=== PATIENT | female | born 1970 | race Caucasian/White ===

== ENCOUNTER → 2018-02-05 15:23 | Outpatient (CLI) | payer BC, SELFPAY ==
[2018-02-05 18:14] LABS: Absolute Lymphocyte Count 2.01 X10^3/ul (0.83-4.51); Absolute Neutrophil Count 6.8 X10^3/uL (2.0-7.7); Basophil# 0.05 X10^3/uL; Basophil% 0.5 % (0-1); Eosinophil# 0.39 X10^3/uL; Hematocrit 38.3 % (37-47); Hemoglobin 12.1 g/dl (12.0-15.0); Lymphocyte # 2.01 X10^3/ul (4.0); Lymphocyte % 20.6 % (19-41); Mean Corp Hgb Conc 31.6 g/gl (32-36); Mean Corpuscular Hgb 29.7 pg (27.0-32.0); Mean Corpuscular Volume 93.9 fL (81-99); Mean Platelet Vol. 10.5 fl (6.2-12.0); Monocyte% 5.1 % (0-10); Neutrophil % 69.7 % (47-70); Platelet Count 337 K/mm3 (150-450); RBC Distribution Width CV 14.6 % (11.6-14.6); RBC Distribution Width SD 49.2 fl (35.1-43.9); Red Blood Count 4.08 M/mm3 (4.2-5.4); White Blood Count 9.8 K/mm3 (4.4-11.0)
[2018-02-05 18:20] LABS: POSITIVE COUNT NO; POSITIVE DIFFERENTIAL NO; POSITIVE MORPHOLOGY NO
[2018-02-05 19:57] LABS: ALB/GLOB Ratio 1.1 RATIO (0.9-2.4); AST(SGOT) 34 U/L (15-37); Alanine Aminotransfer ALT/SGPT 74 U/L (13-56); Albumin, Serum 3.8 g/dL (3.2-5.0); Alkaline Phosphatase 96 U/L (45-117); Anion Gap 10 (5-15); BUN 13 mg/dL (7-18); BUN/Creat Ratio 16.4 RATIO (10-20); Calcium,Total 8.7 mg/dL (8.5-10.1); Chloride 106 mmol/L (98-107); Creatinine, Serum 0.79 mg/dL (0.55-1.02); EST Glomerular Filtration Rate 83 mL/min (>60); Est Glom Filt Rate - Afr Amer 100 mL/min (>60); Globulin 3.4 g/dL (2.2-4.2); Glucose 67 mg/dL (74-106); Potassium 3.6 mmol/L (3.5-5.1); Protein, Total 7.2 g/dL (6.4-8.2); Sodium Level 143 mmol/L (136-145)
== END ==
PROVIDERS: PCP Nurse Practitioner Adult Health; Visit Provider Internal Medicine Rheumatology
DX: L40.59 Other psoriatic arthropathy (principal); Z79.899 Other long term (current) drug therapy; L40.8 Other psoriasis; Q66.7 Congenital pes cavus
CPT/HCPCS: 36415; 80053; 85025

== ENCOUNTER → 2018-03-02 10:59 | Outpatient (CLI) | payer BC, SELFPAY ==
--- NOTE | 2018-03-02 11:15 | RAD_ITS ---
STUDY: X-RAY - PELVIS AND LEFT HIP REASON FOR EXAM: Female, 47 years old. Left hip pain. TECHNIQUE: Radiological exam, hip, unilateral, with pelvis when performed; 2 or 3 views. COMPARISON: None. FINDINGS: There is a non-specific bowel gas pattern. Normal visualized soft tissue structures. Normal bilateral iliac wings, sacroiliac joints and visualized sacrum. Normal bilateral superior and inferior pubic rami. There are degenerative changes of the pubic symphysis with articular narrowing and sclerosis. Normal bilateral ischial tuberosities. There are osteoarthritic changes of the left femoral head with marginal osteophyte formation. Normal left acetabulum. There is moderate articular joint space narrowing of the left hip. RAD/Hip 2-3 Views with Pelvis IMPRESSION: Degenerative changes of the left hip. Electronically Signed: Thuan Mejia DO at 11:36 EDT Tel [phone], Service support ,
== END ==
LOC: LAB 11:02 → RAD 11:11
PROVIDERS: PCP Nurse Practitioner Adult Health; Visit Provider Internal Medicine Rheumatology
DX: L40.59 Other psoriatic arthropathy (principal); Z79.899 Other long term (current) drug therapy
CPT/HCPCS: 73502

== ENCOUNTER → 2018-03-06 08:00 | Outpatient (CLI) | payer BC, SELFPAY ==
--- NOTE | 2018-03-06 08:02 | US_ITS ---
STUDY: ABDOMINAL ULTRASOUND - RIGHT UPPER QUADRANT REASON FOR VISIT: Female, 47 years old. Elevated liver enzymes. TECHNIQUE: Ultrasound evaluation of the right upper quadrant was performed with real-time and static cary-scale imaging. TECHNICAL QUALITY: Adequate. COMPARISON: None. FINDINGS: Liver: The liver measures 15.6 cm. There is increased echogenicity consistent with mild degree of fatty infiltration. The bile ducts are within normal limits. There is hepatic color flow. The direction of portal flow is hepatopetal. There is no demonstrated mass lesion. Gallbladder: Normal distended gallbladder. The gallbladder wall measures 2.3 mm. There is a negative sonographic Webster's sign. There is no pericholecystic fluid. There are no gallstones. Common Bile Duct (C.B.D.): The common bile duct measures 3.6 mm. Pancreas: Normal size of the head, body and tail of the pancreas. There is normal echogenicity of the pancreas. There is no demonstrated pancreatic mass or cyst. Right Kidney: Normal size of the right kidney. The right kidney measures 11.0 cm x 5.0 cm x 4.2 cm. Normal renal cortex. The right cortex measures 1.1 cm. There is no demonstrated renal mass or cyst. There is no right hydronephrosis. US/Liver IMPRESSION: Mild degree of fatty infiltration of the liver. Electronically Signed: José Antonio Pradhan MD at 13:19 EDT Tel [phone], Service support ,
== END ==
LOC: OPUS 08:01
PROVIDERS: PCP Nurse Practitioner Adult Health; Visit Provider Internal Medicine Rheumatology
DX: R74.8 Abnormal levels of other serum enzymes (principal); L40.59 Other psoriatic arthropathy; Z79.899 Other long term (current) drug therapy
CPT/HCPCS: 76705

== ENCOUNTER → 2018-04-01 07:56 | Outpatient (CLI) | payer BC, SELFPAY ==
--- NOTE | 2018-04-01 07:56 | DT_ITS ---
This patient was seen during an EMR downtime April 01, 2018 - April 08, 2018. This patient may have a combination of paper and electronic documentation or all paper documentation. All documentation is viewable within the e-chart portion of [facility] for each patient visit.
[2018-04-05 22:15] LABS: Hematocrit 50.2 % (37-47); Hemoglobin 16.6 g/dl (12.0-15.0); Mean Corpuscular Volume 91.4 fL (81-99); Red Blood Count 5.49 M/mm3 (4.2-5.4); White Blood Count 8.7 K/mm3 (4.4-11.0)
[2018-04-05 22:18] LABS: Mean Corpuscular Hgb 30.2 pg (27.0-32.0)
[2018-04-05 22:19] LABS: Basophil% 0.7 % (0-1); Eosinophils% 3.2 % (0-5); Lymphocyte % 22.4 % (19-41); Mean Corp Hgb Conc 33.1 g/gl (32-36); Mean Platelet Vol. 10.9 fl (6.2-12.0); Monocyte% 3.7 % (0-10); Neutrophil % 69.5 % (47-70); POSITIVE COUNT NO; POSITIVE DIFFERENTIAL NO; POSITIVE MORPHOLOGY NO; Platelet Count 261 K/mm3 (150-450); RBC Distribution Width CV 13.9 % (11.6-14.6); RBC Distribution Width SD 45.7 fl (35.1-43.9)
[2018-04-05 22:20] LABS: Absolute Lymphocyte Count 1.95 X10^3/ul (0.83-4.51); Absolute Neutrophil Count 6.1 X10^3/uL (2.0-7.7); Basophil# 0.06 X10^3/uL; Eosinophil# 0.28 X10^3/uL; Lymphocyte # 1.95 X10^3/ul (4.0); Monocyte# 0.32 X10^3/uL; Neutrophil # 6.05 X10^3/uL (2.7-7.7)
[2018-04-05 22:30] LABS: ALB/GLOB Ratio 1.1 RATIO (0.9-2.4); AST(SGOT) 19 U/L (15-37); Alanine Aminotransfer ALT/SGPT 31 U/L (13-56); Alkaline Phosphatase 109 U/L (45-117); Anion Gap 10 (5-15); BUN 14 mg/dL (7-18); BUN/Creat Ratio 16.3 RATIO (10-20); Calcium,Total 9.2 mg/dL (8.5-10.1); Chloride 106 mmol/L (98-107); Creatinine, Serum 0.86 mg/dL (0.55-1.02); EST Glomerular Filtration Rate 76 mL/min (>60); Est Glom Filt Rate - Afr Amer 92 mL/min (>60); Globulin 3.8 g/dL (2.2-4.2); Glucose 98 mg/dL (74-106); Potassium 4.4 mmol/L (3.5-5.1); Protein, Total 7.8 g/dL (6.4-8.2); Sodium Level 142 mmol/L (136-145)
== END ==
PROVIDERS: PCP Nurse Practitioner Adult Health; Visit Provider Internal Medicine Rheumatology
DX: L40.59 Other psoriatic arthropathy (principal); Z79.899 Other long term (current) drug therapy; L40.8 Other psoriasis; Q66.7 Congenital pes cavus
CPT/HCPCS: 36415; 80053; 85025

== ENCOUNTER 2018-06-19 08:26 | Inpatient (IN) | payer BC, SELFPAY ==
[2018-06-07 12:48] VITALS: BP 138/87; PULSE 85; RESP 16; TEMP 37; O2SAT 97; BMI 32.8
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
[2018-06-07 13:26] LABS: Absolute Neutrophil Count 5.8 X10^3/uL (2.0-7.7); Basophil# 0.05 X10^3/uL; Basophil% 0.6 % (0-1); Eosinophil# 0.23 X10^3/uL; Eosinophils% 2.7 % (0-5); Hematocrit 39.6 % (37-47); Hemoglobin 12.8 g/dl (12.0-15.0); Lymphocyte % 25.4 % (19-41); Mean Corp Hgb Conc 32.3 g/gl (32-36); Mean Corpuscular Hgb 28.9 pg (27.0-32.0); Mean Corpuscular Volume 89.4 fL (81-99); Mean Platelet Vol. 10.2 fl (6.2-12.0); Monocyte# 0.42 X10^3/uL; Monocyte% 4.8 % (0-10); Neutrophil # 5.76 X10^3/uL (2.7-7.7); Neutrophil % 66.4 % (47-70); POSITIVE COUNT NO; POSITIVE DIFFERENTIAL NO; POSITIVE MORPHOLOGY NO; Platelet Count 293 K/mm3 (150-450); RBC Distribution Width CV 13.9 % (11.6-14.6); RBC Distribution Width SD 45.4 fl (35.1-43.9); Red Blood Count 4.43 M/mm3 (4.2-5.4); White Blood Count 8.7 K/mm3 (4.4-11.0)
[2018-06-07 13:52] LABS: Anion Gap 9 (5-15); BUN 12 mg/dL (7-18); BUN/Creat Ratio 13.2 RATIO (10-20); Calcium,Total 8.9 mg/dL (8.5-10.1); Chloride 106 mmol/L (98-107); Creatinine, Serum 0.91 mg/dL (0.55-1.02); EST Glomerular Filtration Rate 71 mL/min (>60); Est Glom Filt Rate - Afr Amer 86 mL/min (>60); Estimated Creatinine Clearance 71.55 ml/min; Glucose 133 mg/dL (74-106); Potassium 3.6 mmol/L (3.5-5.1); Sodium Level 140 mmol/L (136-145)
--- NOTE | 2018-06-12 12:19 | CASEMGMT ---
This CONTACT CENTRE SUPERVISOR called and spoke with pt regarding discharge needs after upcoming surgery. Pt reports that she lives in a mobile home that has approx. 5 steps to get inside. Bedroom and bathroom are on first level of mobile home. Son will be able to assist pt at home, pt's father will assist with transportation needs to/from outpatient therapy at [facility]. Pt states that she will likely have a need for a toilet riser and shower seat but does have a walker.
[2018-06-19] VITALS (15 sets, daily range): BP systolic 105–139; BP diastolic 62–89; PULSE 56–100; RESP 14–18; TEMP 36.6–37.3; O2SAT 94–100; BMI 32.5
--- NOTE | 2018-06-19 07:00 | PCM.OPRPT ---
Report of Operation Date of Procedure: 06/19/18 Pre-Operative Diagnosis: Left hip osteoarthritis Post-Operative Diagnosis: Left hip osteoarthritis Surgery/Procedure Performed:: Left direct anterior total hip replacement Description of Surgical Findings:: Stable hip with equal leg length machine setup operator: Noel Pham Type of Anesthesia:: Spinal Anesthesiologist: Emil Mascorro Special Medications: 2 g Ancef, 1 g TXA at incision, 1 g TXA closure, 10 mg Decadron, joint cocktail (5 mg Duramorph, 30 mL of 0.5% Ropivicaine, 1000 units of epinephrine, 30 mg of Toradol) Specimen's removed: Bony cuts Estimated Blood Loss (mL): 200 Fluids Replaced: 1500 mL crystalloid Description of Procedure: Components used: 1. Accolade 2 Gulf Breeze femoral stem size 3 127? 2. Kip trident acetabular shell size 48 mm 3. Gulf Breeze X3 polyethylene D 4. Kip Biolox delta 32mm, -4mm femoral head Brief history operative indications: 48 yo F who failed conservative measures for their hip osteoarthritis. X-rays were consistent with osteoarthritis including joint space narrowing, osteophyte formation and subchondral cysts. Total hip replacement was discussed with the patient with risks and benefits including but not limited to blood loss, DVTs, PEs, neurovascular damage, dislocation, general risks of anesthesia including loss of life. Patient demonstrated an understanding medical clearance is obtained the patient was consented for surgery. Procedure: On the date of procedure the patient's L hip was marked in the preoperative area. Patient was then taken back to the operating room where anesthesia assumed control of the C-spine and airway and administered anesthetic. Patient was transferred to the operating table and placed in the supine position. The hips were placed at the break of the bed and a sacral bump was placed. The L lower extremity was then prepped out in a sterile fashion using chlorhexidine while the surgeon scrubbed. The PA was vital in the positioning of the patient. Upon reentering the room the L lower extremity was draped in the standard orthopedic fashion and the incision was marked. A timeout was called and everyone agreed upon the side, the site, the procedure be performed, antibody given, and patient's identity. At this time incision was made through skin, subcutaneous tissue, and fat down to fascia. The fascia was then incised and the TFL was retracted laterally. A retractor was placed on the lateral border of the femoral neck. Attention was directed to the inferior portion of the approach and all crossing vessels were identified and appropriately coagulated. A retractor was then placed on the medial portion of the femoral neck. The anterior capsule was then cleared of all soft tissue and then H shaped capsulotomy was made. The retractors were then placed inside the capsule. The femoral neck was identified and a cleanup cut was made. At this time a power corkscrew was used to remove the femoral head. Attention was then turned toward the acetabulum where the soft tissues were appropriately retracted and the acetabulum was sequentially reamed to 47 mm. A 48 mm cup was then selected and impacted into place. Acetabular liner was impacted into place and locking mechanism was verified. The position of the acetabular cup was then verified under live fluoroscopy. Attention was then turned to the femur. Soft tissue releases on the medial and lateral femoral neck were appropriately done, the leg was externally rotated and lateralized. A Mac retractor was placed medially and proximally to the greater trochanter this allowed appropriate visualization and exposure of the femoral canal. Rongeour was then used to remove excess lateral bone. A canal finder and entry broach were used to open the proximal canal. Once we verified we were down the femoral canal we subsequently broached up to a size 3 femur. The appropriate neck was placed in the previously selected head was trialed with a -4 mm neck. Traction was pulled and the hip was reduced with internal rotation. Once it was appropriately reduced and stability was checked. There was minimal shuck, equal leg lengths and appropriate stability with hyperextension and external rotation as well as with 90? flexion and internal rotation. Fluoroscopy was then also used to verify the position of the components and leg lengths using the contralateral side for comparison. The trial components were then dislocated the proximal femur was again exposed and the components were removed from the wound. The final components were verified and opened. The wound was copiously irrigated out with normal saline. The acetabulum was checked for any residual debris. The final components were placed and impacted. Traction and internal rotation were again used to reduce the hip. After adequate reduction the hip remained stable with appropriate leg lengths. The final components were once again checked with live fluoroscopy and were found to be satisfactory. The wound was then copiously irrigated with normal saline once more, and hemostasis was obtained. Closure was then done using #1 Vicryl runner to close the fascia. A 2-0 vicryl interuppted sutures were used to close the subcutaneous skin. A 3-0 Monocryl and Steri-Strips were used for final skin closure. A Silverlon dressing was placed. Patient was awakened by anesthesia and transferred to the [facility]. Patient was then transferred to the PACU for recovery. Postoperative plan: Patient will get 24 hours postop antibiotics. Patient will get in-house physical therapy and will be weight-bear as tolerated. Patient will follow up in office in 2 weeks for a wound check and x-rays. During the course of the procedure the physician library media assistant played a vital role. His intimate knowledge of my steps in the procedure aided in safe and expedient completion of the procedure. The PA played a vital rolls in positioning particularly in obtaining the appropriate positioning of the sacral bump. The PA was also vital in the retraction of soft tissues during the exposure and especially the femoral work as this is a vital part of the procedure to prevent complications and fractures. The PA was also vital and protecting soft tissues during times of bony cuts and reaming. He also played a vital role in closure with my direct supervision. The PA was also important during reduction and dislocation of the joint and trials intraoperatively. Grafts/Implants Used: Gulf Breeze - Complications None - Admit VTE Documentation VTE Present on Admission: No VTE Mechan Device Prophylaxis: SCD's, Thigh High MATTHEW Hose VTE Pharm Prophylaxis ordered?: Yes
[2018-06-19 09:01] LABS: Internal QC Validated? YES +Cl - CLEAR BKGD; Pregnancy, Urine Negative Negative
[2018-06-19] MEDS: Celecoxib 200 MG Capsule 400 MG PO (09:18)
[2018-06-19] MEDS: oxyCODONE HCl Cr 10 MG Tablet PO (09:18)
[2018-06-19] MEDS: Acetaminophen 500 MG Tablet 1000 MG PO ×3 (09:18→21:06)
[2018-06-19] MEDS: Lactated Ringers 1,000 ML 125 ML IV ×2 (09:40→17:20)
[2018-06-19] MEDS: Lactated Ringers 1,000 ML 999 ML IV (09:42)
[2018-06-19] MEDS: Cefazolin 2 GM in 0.9% Normal Saline 100 ML IV (10:02)
[2018-06-19] MEDS: Scopolamine 1mg/72hr Patch 1 PATCH TD (12:30)
[2018-06-19] MEDS: Famotidine 20 MG Tablet PO (17:22)
[2018-06-19] MEDS: Aspirin E.C. 81 MG Tablet PO (17:22)
[2018-06-19] MEDS: Folic Acid 1 MG Tablet 2 MG PO (17:22)
[2018-06-19] MEDS: Cefazolin 1 GM/50 ML BAG IV (17:25)
[2018-06-19] MEDS: Ketorolac 15 MG/ML Vial IV (18:13)
[2018-06-19] MEDS: Senna/Docusate Sodium 1 Tablet 2 TABLET PO (21:06)
[2018-06-20] MEDS: Cefazolin 1 GM/50 ML BAG IV (01:09)
[2018-06-20 02:15] VITALS: BP 104/69; PULSE 52; RESP 17; TEMP 36.8; O2SAT 98
[2018-06-20] MEDS: Acetaminophen 500 MG Tablet 1000 MG PO ×2 (06:09→14:54)
[2018-06-20 06:53] LABS: Hemoglobin 11.1 g/dl (12.0-15.0); Mean Corp Hgb Conc 32.6 g/gl (32-36); Mean Corpuscular Hgb 29.1 pg (27.0-32.0); Mean Corpuscular Volume 89.2 fL (81-99); Mean Platelet Vol. 10.9 fl (6.2-12.0); Platelet Count 235 K/mm3 (150-450); RBC Distribution Width CV 13.6 % (11.6-14.6); RBC Distribution Width SD 42.7 fl (35.1-43.9); Red Blood Count 3.81 M/mm3 (4.2-5.4); White Blood Count 18.4 K/mm3 (4.4-11.0)
[2018-06-20 07:01] LABS: Scan Indicated on CBC? Y/N NO
[2018-06-20 07:02] LABS: Anion Gap 12 (5-15); BUN 12 mg/dL (7-18); BUN/Creat Ratio 15.6 RATIO (10-20); Calcium,Total 8.5 mg/dL (8.5-10.1); Chloride 111 mmol/L (98-107); Creatinine, Serum 0.77 mg/dL (0.55-1.02); EST Glomerular Filtration Rate 86 mL/min (>60); Est Glom Filt Rate - Afr Amer 104 mL/min (>60); Estimated Creatinine Clearance 84.55 ml/min; Glucose 110 mg/dL (74-106); Potassium 4.2 mmol/L (3.5-5.1); Sodium Level 145 mmol/L (136-145)
[2018-06-20 08:14] VITALS: BP 119/71; PULSE 58; RESP 16; TEMP 36.6; O2SAT 97
[2018-06-20] MEDS: 0.9% NaCl Peripheral Flush Adult/Peds IV (08:15)
[2018-06-20] MEDS: Ketorolac 15 MG/ML Vial IV (08:16)
[2018-06-20] MEDS: Aspirin E.C. 81 MG Tablet PO (08:16)
[2018-06-20] MEDS: Senna/Docusate Sodium 1 Tablet 2 TABLET PO (08:16)
[2018-06-20] MEDS: Famotidine 20 MG Tablet PO (08:16)
[2018-06-20] MEDS: Folic Acid 1 MG Tablet 2 MG PO (08:16)
--- NOTE | 2018-06-20 09:51 | PCM.PN.ORT ---
Subjective: The patient was sitting in bedside chair upon examination. Patient denies any chest pain, shortness of breath, dizziness, lightheadedness, nausea or vomiting, or calf pain. Pain is controlled on medications. No adverse overnight events. Patient is doing well and has tolerated physical therapy. Pain is been controlled on medications. Patient wishes to go home today. Objective: Vital signs stable and afebrile. Patient is able to plantarflex and dorsiflex actively. Sensation is intact to light touch to saphenous, sural, superficial and deep peroneal, and tibial distribution. Dressing is clean dry and intact. Negative Homans bilaterally, negative signs and symptoms of DVT. - Physical Exam General: Alert, Oriented x3, Cooperative, No apparent distress Vital Signs Temp Pulse Resp BP Pulse Ox 97.9 F 58 L 16 119/71 97 06/20/18 08:14 06/20/18 08:14 06/20/18 08:14 06/20/18 08:14 06/20/18 08:14 Oxygen Delivery Method Room Air Weight: 91.626 kg Body Mass Index (BMI) 32.5 Intake and Output for Last 24 Hours 06/18/18 06/19/18 06/20/18 23:59 23:59 23:59 Intake Total 2898 / 2898 561 / 561 Output Total 1400 / 1400 300 / 300 Balance 1498 / 1498 261 / 261 Laboratory Tests Past 24 Hrs 06/20/18 06/20/18 05:50 05:50 WBC 18.4 H RBC 3.81 L Hgb 11.1 L Hct 34.0 L MCV 89.2 MCH 29.1 MCHC 32.6 RDW 13.6 RDW Differential 42.7 Plt Count 235 MPV 10.9 Sodium 145 Potassium 4.2 Chloride 111 H Carbon Dioxide 22.0 Anion Gap 12 BUN 12 Creatinine 0.77 Estim Creat Clear Calc 84.55 Est GFR (MDRD) Af Amer 104 Est GFR (MDRD) Non-Af 86 BUN/Creatinine Ratio 15.6 Glucose 110 H Calcium 8.5 Medical Necessity - Tobacco Use Smoking Status: Unknown if ever smoked Assessment/Plan 1. S/P direct anterior left total hip arthroplasty POD #1 2. Continue Pain Medications: Tylenol and OxyIR 3. DVT Prophylaxis: Aspirin 81 mg twice daily with food for 4 weeks postoperatively 4. PT/OT: Weightbearing as tolerated 5. H & H: 18.1/34.0, asymptomatic 6. Encouraged Incentive Spirometry 7. Disposition: Orthopedically stable, plan will be for discharge home today. Prescriptions will be E scribed to [facility]. Patient will follow-up per postop instructions.
--- NOTE | 2018-06-20 09:56 | PCM.DC.THR ---
Discharge Diet: No Restrictions Discharge Activity: May Not Drive - while taking narcotic pain medications. May shower in (days): 1 - Turned dressing away from water Ice area for (Minutes): 20 - Every 1-2 hours while awake Weight Bearing Status: Weight bearing as tolerated Elevate: Operative Extremity Additional Activity Instructions:: Wear elastic stockings for 2 weeks. DO NOT use alcohol with narcotic pain medication. DO NOT make important decisions while taking narcotic medication. If you have problems with taking your medication (rash, itching, nausea, etc.) call the office at once. Call your doctor if your incision/area has: Increased Pain/ Swelling, Increased Redness, Foul Smelling Discharge Call your doctor if you observe: Fever of 101 or Higher Remove Dressing in (days):: 4 - Okay to remove dressing on June 24, 2018 Additional Instructions: Follow [facility] postop instructions Allergies/Adverse Reactions: Allergies No Known Allergies Allergy (Verified 06/19/18 09:01) Medications to take at Discharge Folic Acid 2 mg PO DAILY@0800 06/07/18 Methotrexate 15 mg PO Q7D 06/07/18 Acetaminophen [Tylenol] 1,000 mg PO Q8 #90 tab 06/20/18 Aspirin E.C. [Ecotrin] 81 mg PO BIDCM #60 tab 06/20/18 Famotidine [Pepcid] 20 mg PO DAILY #30 tab 06/20/18 Meloxicam [Mobic] 7.5 mg PO BID #30 tab 06/20/18 Oxycodone [Oxyir] 5 - 10 mg PO Q4H PRN PRN 4 Days #48 tablet 06/20/18 Senna/Docusate Sodium [Senokot-S] 2 tab PO BID #20 tab 06/20/18 The following prescriptions were given: Oxycodone [Oxyir] 5 - 10 mg PO Q4H PRN PRN 4 Days #48 tablet PRN Reason: Mod-Severe Pain (-08/07) Acetaminophen [Tylenol] 1,000 mg PO Q8 #90 tab Famotidine [Pepcid] 20 mg PO DAILY #30 tab Aspirin E.C. [Ecotrin] 81 mg PO BIDCM #60 tab Meloxicam [Mobic] 7.5 mg PO BID #30 tab Senna/Docusate Sodium [Senokot-S] 2 tab PO BID #20 tab Primary Care Physician: Sandra Hwang NP-C [Primary Care Provider] - Test Results: Test results from this visit will be discussed in further detail at your follow-up appointment, if applicable. Please Follow Up With: [facility] When: 06/24/18 @ 10:30 am with Yajaira Please Follow Up With: Estuardo Cochran PA-C When: 07/03/18 @ 9:00 am
--- NOTE | 2018-06-20 10:39 | CASEMGMT ---
JOSEE HERNANDEZ Face to Face with patient for initial transition planning/care coordination assessment. RN CM introduced self and role at [facility]. Patient sitting in chair, alert and oriented. Patient willing to participate in assessment and is able to answer all questions appropriately. Care providers, pharmacy, and demographics verified. Patient wishes to discharge home, and is setup with [facility] for outpatient therapy. Patients states she has no further needs or concerns at this time. CM to follow for discharge planning needs that may arise. Disposition Plan: Patient to discharge home with outpatient therapy, family support, and follow-up plans in place. Sindi COWAN, RN, CM
[2018-06-20 14:55] VITALS: BP 118/70; PULSE 67; RESP 14; TEMP 37.2; O2SAT 100
== END 2018-06-20 15:00 | disposition home or self-care (01) | DRG 470 ==
LOC: MS3 08:27
PROVIDERS: Admitting Provider Specialist; PCP Nurse Practitioner Adult Health; Visit Provider Specialist
PROC: 0SRB04A Replacement of Left Hip Joint with Ceramic on Polyethylene Synthetic Substitute, Uncemented, Open Approach (ICD-10-PCS; CPT 27284; principal; 2018-06-19 10:20)
DX: M16.12 Unilateral primary osteoarthritis, left hip (principal); L40.50 Arthropathic psoriasis, unspecified; Z79.1 Long term (current) use of non-steroidal anti-inflammatories (NSAID)
CPT/HCPCS: 36415; 73501; 73502; 76000; 80048; 81025; 85025; 85027; 87081; 97110; 97116; 97162; 97166; 97530; 99251; C1713; C1776; J7120; A4216; G0463

== ENCOUNTER → 2018-08-16 10:27 | Outpatient (CLI) | payer BC, SELFPAY ==
[2018-08-16 12:20] LABS: Absolute Lymphocyte Count 1.62 X10^3/ul (0.83-4.51); Absolute Neutrophil Count 6.6 X10^3/uL (2.0-7.7); Basophil# 0.06 X10^3/uL; Basophil% 0.7 % (0-1); Eosinophil# 0.18 X10^3/uL; Hematocrit 41.6 % (37-47); Hemoglobin 13.5 g/dl (12.0-15.0); Lymphocyte # 1.62 X10^3/ul (4.0); Lymphocyte % 18.3 % (19-41); Mean Corp Hgb Conc 32.5 g/gl (32-36); Mean Corpuscular Hgb 28.1 pg (27.0-32.0); Mean Corpuscular Volume 86.5 fL (81-99); Monocyte# 0.36 X10^3/uL; Monocyte% 4.1 % (0-10); Neutrophil % 74.7 % (47-70); Platelet Count 326 K/mm3 (150-450); RBC Distribution Width CV 13.6 % (11.6-14.6); RBC Distribution Width SD 42.2 fl (35.1-43.9); Red Blood Count 4.81 M/mm3 (4.2-5.4); White Blood Count 8.8 K/mm3 (4.4-11.0)
[2018-08-16 12:29] LABS: POSITIVE COUNT NO; POSITIVE DIFFERENTIAL NO; POSITIVE MORPHOLOGY NO
[2018-08-16 12:33] LABS: AST(SGOT) 13 U/L (15-37); Alanine Aminotransfer ALT/SGPT 24 U/L (13-56); Albumin, Serum 3.8 g/dL (3.2-5.0); Alkaline Phosphatase 121 U/L (45-117); Anion Gap 10 (5-15); BUN 12 mg/dL (7-18); BUN/Creat Ratio 11.9 RATIO (10-20); Calcium,Total 9.4 mg/dL (8.5-10.1); Chloride 107 mmol/L (98-107); Creatinine, Serum 1.01 mg/dL (0.55-1.02); EST Glomerular Filtration Rate 62 mL/min (>60); Est Glom Filt Rate - Afr Amer 76 mL/min (>60); Glucose 129 mg/dL (74-106); Potassium 4.1 mmol/L (3.5-5.1); Protein, Total 7.8 g/dL (6.4-8.2); Sodium Level 140 mmol/L (136-145)
== END ==
PROVIDERS: PCP Nurse Practitioner Adult Health; Referring Provider Internal Medicine Rheumatology; Visit Provider Internal Medicine Rheumatology
DX: L40.59 Other psoriatic arthropathy (principal); Z79.899 Other long term (current) drug therapy; L40.8 Other psoriasis; M16.12 Unilateral primary osteoarthritis, left hip; K76.0 Fatty (change of) liver, not elsewhere classified; Q66.7 Congenital pes cavus
CPT/HCPCS: 36415; 80053; 85025

== ENCOUNTER → 2018-11-13 16:26 | Outpatient (CLI) | payer BC, SELFPAY ==
[2018-11-13 17:43] LABS: Absolute Lymphocyte Count 2.66 X10^3/ul (0.83-4.51); Absolute Neutrophil Count 8.1 X10^3/uL (2.0-7.7); Basophil# 0.04 X10^3/uL; Basophil% 0.3 % (0-1); Eosinophil# 0.24 X10^3/uL; Eosinophils% 2.1 % (0-5); Hematocrit 39.3 % (37-47); Hemoglobin 12.7 g/dl (12.0-15.0); Lymphocyte # 2.66 X10^3/ul (4.0); Lymphocyte % 22.8 % (19-41); Mean Corp Hgb Conc 32.3 g/gl (32-36); Mean Corpuscular Hgb 27.2 pg (27.0-32.0); Mean Corpuscular Volume 84.2 fL (81-99); Mean Platelet Vol. 10.6 fl (6.2-12.0); Monocyte# 0.62 X10^3/uL; Monocyte% 5.3 % (0-10); Neutrophil # 8.06 X10^3/uL (2.7-7.7); Neutrophil % 69.2 % (47-70); Platelet Count 327 K/mm3 (150-450); RBC Distribution Width CV 14.8 % (11.6-14.6); RBC Distribution Width SD 44.9 fl (35.1-43.9); Red Blood Count 4.67 M/mm3 (4.2-5.4); White Blood Count 11.7 K/mm3 (4.4-11.0)
[2018-11-13 17:48] LABS: POSITIVE COUNT NO; POSITIVE DIFFERENTIAL NO; POSITIVE MORPHOLOGY NO
[2018-11-13 17:53] LABS: AST(SGOT) 9 U/L (15-37); Alanine Aminotransfer ALT/SGPT 17 U/L (13-56); Albumin, Serum 3.9 g/dL (3.2-5.0); Alkaline Phosphatase 117 U/L (45-117); Anion Gap 7 (5-15); BUN 18 mg/dL (7-18); Calcium,Total 8.8 mg/dL (8.5-10.1); Chloride 107 mmol/L (98-107); EST Glomerular Filtration Rate 63 mL/min (>60); Est Glom Filt Rate - Afr Amer 76 mL/min (>60); Globulin 3.9 g/dL (2.2-4.2); Glucose 98 mg/dL (74-106); Potassium 3.8 mmol/L (3.5-5.1); Protein, Total 7.8 g/dL (6.4-8.2); Sodium Level 140 mmol/L (136-145)
--- OUTSIDE RECORDS SUMMARY | 2019-01-18 16:30 | XMS RPT_ITS ---
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 vessel and completely block a smaller blood vessel. This can cause a stroke or a heart attack. Your kidneys and eyes may also be damaged. High blood pressure speeds up this process. How do I get started? Your healthcare provider or a dietitian can tell you how many calories a day you need. Most adults need somewhere between 1600 and 2800 calories a day. Check product nutrition labels for serving sizes and the number of calories per serving. You don?t need to buy special foods and there are no zcpy-kl-zjgqqs recipes. Start by seeing how DASH compares with what you eat now. Make changes gradually. Here are some suggestions that might help: If you now eat 1 or 2 servings of vegetables a day, add a serving at lunch and another at dinner. Add vegetables into soups, stews, and sauces. If you have not been eating fruit regularly, or only drink fruit juice, add a serving of fruit to your meals or have it as a snack. Use fruits canned in their own juice or eat more fresh fruits such as apples and bananas. Drink milk or water with lunch or dinner instead of soda, sugar-sweetened tea, or alcohol. Choose low-fat (1%) or fat-free dairy products so that you eat fewer calories and less fat and cholesterol. Read food labels on margarines and salad dressings to choose products lowest in fat and sodium. If you eat a lot of meat, slowly cut back at each meal. Limit meat to 2 servings per day, with each serving being about 3 to 4 ounces, which is the size of a deck of cards or the palm of your hand. Have 2 or more meals each week that do not include meat. Increase servings of vegetables, rice, pasta, and beans in all meals. Try casseroles, pasta, and stir-medley dishes that have less meat and more vegetables, grains, and beans. Try these snacks ideas: unsalted pretzels or nuts mixed with raisins or cranberries, buzz crackers, low-fat and fat-free yogurt or frozen yogurt, popcorn with no added salt or butter, or raw vegetables. Choose whole-grain foods to get more minerals and fiber. For example, choose whole-wheat bread, whole-grain cereals, or brown rice. Although whole grains are a healthy choice, large portions can lead to weight gain. A portion of grain is 1/2 to 1 cup. A cup of food is about the same size as your fist. The DASH diet can also help you reduce the salt and sodium in your diet. Try to have no more than 2300 milligrams (mg) of sodium per day. An even lower level of sodium, 1,500 mg, can further reduce blood pressure. Three ways to reduce sodium are: Eat food products with reduced-sodium or no salt added. Use fresh, frozen, or od-vnee-mhcik canned vegetables. Use less salt when you cook and do not add salt to your food at the table. Use spices and seasonings such as pepper, garlic, onion, hernan, or melvin to replace salt. Read food labels. Look for foods that contain less than 5% of the daily value of sodium. If you need to lose weight as well as lower your blood pressure, replace high-calorie foods with more fruits and vegetables. The DASH eating plan contains many lower-calorie foods, such as fruits and vegetables. Here are some ways to cut calories: Eat a medium apple instead of 4 cookies. You'll save 80 calories. Eat 1/4 cup of dried apricots instead of a 2-ounce bag of pork rinds. You'll save 230 calories. Have a hamburger that weighs 3 ounces instead of a quarter pound. Add a 1/2 cup serving of carrots and a 1/2 cup serving of spinach. You'll save more than 200 calories. Instead of 5 ounces of chicken, have a stir medley with 2 ounces of chicken and 1 and 1/2 cups of raw vegetables. Use just a small amount of vegetable oil. You'll save 50 calories. Have a 1/2 cup serving of low-fat frozen yogurt instead of a 1-and-1/2-ounce chocolate bar. You'll save about 110 calories. Use low-fat or fat-free salad dressings. Eat smaller portions. Cut back slowly. Use food labels to compare fat and calorie content in packaged foods. Items marked low-fat or fat-free may be lower in fat but not lower in calories than their regular versions. Limit foods with lots of added sugar, such as pies, flavored yogurts, candy bars, ice cream, sherbet, regular soft drinks, and fruit drinks. Drink water or club soda instead of cola or other soda drinks. For more information, see the Guide to lowering your Blood Pressure with DASH at: http://www.nhlbi.nih.gov/health/public/heart/hbp/dash/dash_brief.pdf. Developed by [employer]. Adult Advisor 2014.1 published by [employer]. Last modified: 2013-01-30 Last reviewed: 2013-01-27 This content is reviewed periodically and is subject to change as new health information becomes available. The information is intended to inform and educate and is not a replacement for medical evaluation, advice, diagnosis or treatment by a healthcare professional. References Adult Advisor 2014.1 Index Copyright ?2014 [employer] and/or one of its subsidiaries. All rights reserved. Medications Discontinued During This Encounter methotrexate 2.5 mg tablet 3 08/24/2017 08/13/2018 Class: Historical Med Sig: TAKE 6 TABLETS BY MOUTH ONCE A WEEK Disc: Reason for discontinue is not on file. Level of Service: EST PATIENT VISIT LEVEL 3 [86611] Disposition: Return if symptoms worsen or fail to improve. Follow-up and Disposition History Recorded Encounter Status:Closed by REI SPAIN CNP on 08/13/18 DISCHARGE INSTRUCTION Observed: 06/20/2018 Status: F Source: [place] 9:58 AM [facility] REPOSITORY [facility] Medical Records Department [address] [place] [address] Instructions for Home/Discharge Instructions 06/20/18 0956 MR#: [id number] Acct: [id number] Name: QUIN JOEL Anthony Rep #: [id number] : 1970 48 From: Estuardo Cochran PA-C PCP: DI Dumont Status: ADM IN Discharge Diet: No Restrictions Discharge Activity: May Not Drive - while taking narcotic pain medications. May shower in (days): 1 - Turned dressing away from water Ice area for (Minutes): 20 - Every 1-2 hours while awake Weight Bearing Status: Weight bearing as tolerated Elevate: Operative Extremity Additional Activity Instructions:: Wear elastic stockings for 2 weeks. DO NOT use alcohol with narcotic pain medication. DO NOT make important decisions while taking narcotic medication. If you have problems with taking your medication (rash, itching, nausea, etc.) call the office at once. Call your doctor if your incision/area has: Increased Pain/ Swelling, Increased Redness, Foul Smelling Discharge Call your doctor if you observe: Fever of 101 or Higher Remove Dressing in (days):: 4 - Okay to remove dressing on June 24, 2018 Additional Instructions: Follow [facility] [place] postop instructions Allergies/Adverse Reactions: Allergies No Known Allergies Allergy (Verified 06/19/18 09:01) Medications to take at Discharge Folic Acid 2 mg PO DAILY@0800 06/07/18 Methotrexate 15 mg PO Q7D 06/07/18 Acetaminophen [Tylenol] 1,000 mg PO Q8 #90 tab 06/20/18 Aspirin E.C. [Ecotrin] 81 mg PO BIDCM #60 tab 06/20/18 Famotidine [Pepcid] 20 mg PO DAILY #30 tab 06/20/18 Meloxicam [Mobic] 7.5 mg PO BID #30 tab 06/20/18 Oxycodone [Oxyir] 5 - 10 mg PO Q4H PRN PRN 4 Days #48 tablet 06/20/18 Senna/Docusate Sodium [Senokot-S] 2 tab PO BID #20 tab 06/20/18 The following prescriptions were given: Oxycodone [Oxyir] 5 - 10 mg PO Q4H PRN PRN 4 Days #48 tablet PRN Reason: Mod-Severe Pain (-08/07) Acetaminophen [Tylenol] 1,000 mg PO Q8 #90 tab Famotidine [Pepcid] 20 mg PO DAILY #30 tab Aspirin E.C. [Ecotrin] 81 mg PO BIDCM #60 tab Meloxicam [Mobic] 7.5 mg PO BID #30 tab Senna/Docusate Sodium [Senokot-S] 2 tab PO BID #20 tab Primary Care Physician: Rei Spain NP-C [Primary Care Provider] - Test Results: Test results from this visit will be discussed in further detail at your follow-up appointment, if applicable. Please Follow Up With: [facility] When: 06/24/18 @ 10:30 am with Yajaira Please Follow Up With: Estuardo Cochran PA-C When: 07/03/18 @ 9:00 am 06/20/18 0958 <Electronically signed by Estuardo Cochran PA-C> Date Estuardo Cochran PA-C CC: Rei Chavez; DI [place] CBC-COMPLETE BLOOD CNT Collected: 06/20/2018 Status: F Source: [place] NO DIFF 5:50 AM [facility] REPOSITORY TYPE CODE TESTS RESULT OUT OF RANGE REFERENCE UNITS LAB L100.1000 4.4-11.0 K/mm3 High WBC 18.4 LAB L100.1200 4.2-5.4 M/mm3 Low RBC 3.81 LAB L100.1300 12.0-15.0 g/dl Low HGB 11.1 LAB L100.1400 37-47 % Low HCT 34.0 LAB L100.1500 81-99 fL Normal MCV 89.2 LAB L100.1600 27.0-32.0 pg Normal MCH 29.1 LAB L100.1700 32-36 g/gl Normal MCHC 32.6 LAB L100.1810 11.6-14.6 % Normal RDW CV 13.6 LAB L100.1820 35.1-43.9 fl Normal RDW SD 42.7 LAB L100.1900 150-450 K/mm3 Normal PLT 235 LAB L100.2000 6.2-12.0 fl Normal MPV 10.9 Performed By: #### L100.0500 #### [facility] [address] [place], [place], [address] BASIC METABOLIC Collected: 06/20/2018 Status: F Source: [place] PROFILE (BMP) 5:50 AM [facility] REPOSITORY TYPE CODE TESTS RESULT OUT OF RANGE REFERENCE UNITS LAB L501.0100 74-106 mg/dL High GLU 110 Result Comment: Fasting Glucose result from 100 to 125 mg/dL suggests IMPAIRED HOMEOSTASIS per A.D.A. criteria. Please note revised GLUCOSE reference range effective 2017. LAB L501.1000 7-18 mg/dL Normal BUN 12 LAB L501.1100 0.55-1.02 mg/dL Normal CREAT,SERUM 0.77 Result Comment: The validity of the calculated GFR AND GFRAA in patients over 70 years has not been determined. Clinical correlation is essential. LAB L501.1110 >60 mL/min Normal EST GFR 86 Result Comment: Non- GFR Calc LAB L501.1115 >60 mL/min Normal EST GFR - AA 104 Result Comment: GFR Calc LAB L501.1255 ml/min Normal Estimated CRCL 84.55 LAB L501.1300 10-20 RATIO Normal BUN/CRE 15.6 LAB L501.2200 8.5-10 mg/dL Normal .1 CA 8.5 LAB L501.5300 136-14 mmol/L Normal 5 NA 145 LAB L501.5600 3.5-5. mmol/L Normal 1 K 4.2 LAB L501.5900 98-107 mmol/L High CL 111 LAB L501.6100 21.0-3 mmol/L Normal 2.0 CO2 22.0 LAB L501.6200 5-15 Normal GAP 12 Performed By: #### L500.2500 #### [facility] [address] [place], [address] OPERATIVE REPORT Observed: 06/19/2018 Status: F Source: [place] 11:27 AM [facility] REPOS[facility]ORY [facility] Medical Records Department [address] [place] [address] Operative Report 06/19/18 0700 MR#: [id number] Acct: [id number] Name: QUIN JOEL Rep #: [id number] : 1970 48 From: Juan Chandra MD PCP: DI Dumont Status: ADM IN Y Location: [facility] [id number] Report of Operation Date of Procedure: 06/19/18 Pre-Operative Diagnosis: Left hip osteoarthritis Post-Operative Diagnosis: Left hip osteoarthritis Surgery/Procedure Performed:: Left direct anterior total hip replacement Description of Surgical Findings:: Stable hip with equal leg length corporate travel manager: Noel Pham Type of Anesthesia:: Spinal Anesthesiologist: Emil Mascorro Special Medications: 2 g Ancef, 1 g TXA at incision, 1 g TXA closure, 10 mg Decadron, joint cocktail (5 mg Duramorph, 30 mL of 0.5% Ropivicaine, 1000 units of epinephrine, 30 mg of Toradol) Specimen's removed: Bony cuts Estimated Blood Loss (mL): 200 Fluids Replaced: 1500 mL crystalloid Description of Procedure: Components used: 1. Accolade 2 Fair Play femoral stem size 3 127 2. Kip trident acetabular shell size 48 mm 3. Fair [place] X3 polyethylene D 4. Fair [place] Biolox delta 32mm, -4mm femoral head Brief history operative indications: 48 yo F who failed conservative measures for their hip osteoarthritis. X-rays were consistent with osteoarthritis including joint space narrowing, osteophyte formation and subchondral cysts. Total hip replacement was discussed with the patient with risks and benefits including but not limited to blood loss, DVTs, PEs, neurovascular damage, dislocation, general risks of anesthesia including loss of life. Patient demonstrated an understanding medical clearance is obtained the patient was consented for surgery. Procedure: On the date of procedure the patient's L hip was marked in the preoperative area. Patient was then taken back to the operating room where anesthesia assumed control of the C-spine and airway and administered anesthetic. Patient was transferred to the operating table and placed in the supine position. The hips were placed at the break of the bed and a sacral bump was placed. The L lower extremity was then prepped out in a sterile fashion using chlorhexidine while the surgeon scrubbed. The PA was vital in the positioning of the patient. Upon reentering the room the L lower extremity was draped in the standard orthopedic fashion and the incision was marked. A timeout was called and everyone agreed upon the side, the site, the procedure be performed, antibody given, and patient's identity. At this time incision was made through skin, subcutaneous tissue, and fat down to fascia. The fascia was then incised and the TFL was retracted laterally. A retractor was placed on the lateral border of the femoral neck. Attention was directed to the inferior portion of the approach and all crossing vessels were identified and appropriately coagulated. A retractor was then placed on the medial portion of the femoral neck. The anterior capsule was then cleared of all soft tissue and then H shaped capsulotomy was made. The retractors were then placed inside the capsule. The femoral neck was identified and a cleanup cut was made. At this time a power corkscrew was used to remove the femoral head. Attention was then turned toward the acetabulum where the soft tissues were appropriately retracted and the acetabulum was sequentially reamed to 47 mm. A 48 mm cup was then selected and impacted into place. Acetabular liner was impacted into place and locking mechanism was verified. The position of the acetabular cup was then verified under live fluoroscopy. Attention was then turned to the femur. Soft tissue releases on the medial and lateral femoral neck were appropriately done, the leg was externally rotated and lateralized. A Mac retractor was placed medially and proximally to the greater trochanter this allowed appropriate visualization and exposure of the femoral canal. Rongeour was then used to remove excess lateral bone. A canal finder and entry broach were used to open the proximal canal. Once we verified we were down the femoral canal we subsequently broached up to a size 3 femur. The appropriate neck was placed in the previously selected head was trialed with a -4 mm neck. Traction was pulled and the hip was reduced with internal rotation. Once it was appropriately reduced and stability was checked. There was minimal shuck, equal leg lengths and appropriate stability with hyperextension and external rotation as well as with 90 flexion and internal rotation. Fluoroscopy was then also used to verify the position of the components and leg lengths using the contralateral side for comparison. The trial components were then dislocated the proximal femur was again exposed and the components were removed from the wound. The final components were verified and opened. The wound was copiously irrigated out with normal saline. The acetabulum was checked for any residual debris. The final components were placed and impacted. Traction and internal rotation were again used to reduce the hip. After adequate reduction the hip remained stable with appropriate leg lengths. The final components were once again checked with live fluoroscopy and were found to be satisfactory. The wound was then copiously irrigated with normal saline once more, and hemostasis was obtained. Closure was then done using #1 Vicryl runner to close the fascia. A 2-0 vicryl interuppted sutures were used to close the subcutaneous skin. A 3-0 Monocryl and Steri-Strips were used for final skin closure. A Silverlon dressing was placed. Patient was awakened by anesthesia and transferred to the [facility]. Patient was then transferred to the PACU for recovery. Postoperative plan: Patient will get 24 hours postop antibiotics. Patient will get in-house physical therapy and will be weight-bear as tolerated. Patient will follow up in office in 2 weeks for a wound check and x-rays. During the course of the procedure the physician export sales assistant played a vital role. His intimate knowledge of my steps in the procedure aided in safe and expedient completion of the procedure. The PA played a vital rolls in positioning particularly in obtaining the appropriate positioning of the sacral bump. The PA was also vital in the retraction of soft tissues during the exposure and especially the femoral work as this is a vital part of the procedure to prevent complications and fractures. The PA was also vital and protecting soft tissues during times of bony cuts and reaming. He also played a vital role in closure with my direct supervision. The PA was also important during reduction and dislocation of the joint and trials intraoperatively. Grafts/Implants Used: Fair Play - Complications None - Admit VTE Documentation VTE Present on Admission: No VTE Mechan Device Prophylaxis: SCD's, Thigh High MATTHEW Hose VTE Pharm Prophylaxis ordered?: Yes 06/19/18 1127 <Electronically signed by Juan Chandra MD> Date Juan Chandra MD CC: Rei Chavez; DI [place]; Juan Chandra MD Signed ,URINE Collected: 06/19/2018 Status: F Source: [place] 8:47 AM [facility] REPOSITORY TYPE CODE TESTS RESULT OUT OF REFERENCE UNITS RANGE LAB L400.8000 Negative Normal HCGUQUAL Negative Result Comment: Very dilute urine specimens, as indicated by a low specific gravity, may not contain employee representative levels of hCG. If is still suspected, a first morning urine specimen should be collected 48 hours later and tested. Performed By: #### L400.7600 #### [facility] [address] [facility], [address] HIP MIN 2 VIEWS Observed: 06/19/2018 Status: F Source: [place] (PORTABLE) 7:00 AM [facility] REPOSITORY [facility] Imaging Services [address] [place] [address] Hip Min 2 Views (Portable) MR#: [id number] Acct: [id number] Name: QUIN JOEL Rep #: [id number] : 1970 F 48 From: Alejandro Gayle DO PCP: DI Dumont Status: ADM IN Study: Hip Min 2 Views (Portable) Date of Exam: 06/19/18 Exam# [id number] Ordering Dr: Juan Chandra MD STUDY: X-RAY - PELVIS AND LEFT HIP REASON FOR EXAM: Female, 48 years old. Postop from left hip replacement TECHNIQUE: Radiological exam, hip, unilateral, with pelvis when performed; 2 or 3 views. COMPARISON: 03/02/2018 FINDINGS: Status post left hip replacement. No evidence of hardware failure or loosening. No acute fracture or dislocation. Right hip is within normal limits RAD/Hip Min 2 Views (Portable) IMPRESSION: As above Electronically Signed: Alejandro Gayle DO at 12:32 EDT Tel , Service support , CC: DI [place]; Juan Chandra MD Catalytic Case Operator: Signed HIP 1 VIEW WITH Observed: 06/18/2018 Status: F Source: [place] PELVIS 11:50 PM [facility] REPOSITORY [facility] Imaging Services [address] [place] [address] Hip 1 view with Pelvis MR#: [id number] Acct: [id number] Name: QUIN JOEL Rep #: [id number] : 1970 F 48 From: Alejandro Gayle DO PCP: DI Dumont Status: ADM IN Study: Hip 1 view with Pelvis Date of Exam: 06/19/18 Exam# [id number] Ordering Dr: Juan Chandra MD STUDY: X-RAY - PELVIS AND LEFT HIP REASON FOR EXAM: Female, 48 years old. Total hip replacement TECHNIQUE: Radiological exam, hip, unilateral, with pelvis when performed; 1 view COMPARISON: None. FINDINGS: Intraoperative fluoroscopy images demonstrate left total hip replacement without evidence of acute heart failure or loosening. RAD/Hip 1 view with Pelvis IMPRESSION: As above Electronically Signed: Alejandro Gayle DO at 14:20 EDT Tel , Service support , CC: DI [place]; Juan Chandra MD Catalytic Case Operator: Signed CBC W/DIFF, AUTOMATED Collected: 06/07/2018 Status: F Source: [place] 1:10 PM [facility] REPOSITORY TYPE CODE TESTS RESULT OUT OF RANGE REFERENCE UNITS LAB L100.1000 4.4-11.0 K/mm3 Normal WBC 8.7 LAB L100.1200 4.2-5.4 M/mm3 Normal RBC 4.43 LAB L100.1300 12.0-15.0 g/dl Normal HGB 12.8 LAB L100.1400 37-47 % Normal HCT 39.6 LAB L100.1500 81-99 fL Normal MCV 89.4 LAB L100.1600 27.0-32.0 pg Normal MCH 28.9 LAB L100.1700 32-36 g/gl Normal MCHC 32.3 LAB L100.1810 11.6-14.6 % Normal RDW CV 13.9 LAB L100.1820 35.1-43.9 fl High RDW SD 45.4 LAB L100.1900 150-450 K/mm3 Normal PLT 293 LAB L100.2000 6.2-12.0 fl Normal MPV 10.2 LAB L100.2100 47-70 % Normal NEUT% 66.4 LAB L100.2200 19-41 % Normal LY% 25.4 LAB L100.2300 0-10 % Normal MONO% 4.8 LAB L100.2400 0-5 % Normal EO% 2.7 LAB L100.2500 0-1 % Normal BASO% 0.6 LAB L100.2550 0.0-0.9 % Normal IM GRAN % 0.100 Result Comment: IG% - Immature Granulocytes (promyelocytes, myelocytes and metamyelocytes) > 1% indicates that a LEFT SHIFT is Present. LAB L100.2620 2.0-7.7 X10 3/uL Normal Absolute Neut 5.8 LAB L100.2720 0.83-4.51 X10 3/ul Normal Absolute Lymph 2.20 Performed By: #### L100.0100 #### [facility] [address] [facility], [address] BASIC METABOLIC Collected: 06/07/2018 Status: F Source: [place] PROFILE (BMP) 1:10 PM [facility] REPOSITORY TYPE CODE TESTS RESULT OUT OF RANGE REFERENCE UNITS LAB L501.0100 74-106 mg/dL High GLU 133 Result Comment: Fasting Glucose result greater than or equal to 126 mg/dL suggests DIABETES MELLITUS per A.D.A. criteria. Please note revised GLUCOSE reference range effective 2017. LAB L501.1000 7-18 mg/dL Normal BUN 12 LAB L501.1100 0.55-1.02 mg/dL Normal CREAT,SERUM 0.91 Result Comment: The validity of the calculated GFR AND GFRAA in patients over 70 years has not been determined. Clinical correlation is essential. LAB L501.1110 >60 mL/min Normal EST GFR 71 Result Comment: Non- GFR Calc LAB L501.1115 >60 mL/min Normal EST GFR - AA 86 Result Comment: GFR Calc LAB L501.1255 ml/min Normal Estimated CRCL 71.55 LAB L501.1300 10-20 RATIO Normal BUN/CRE 13.2 LAB L501.2200 8.5-10 mg/dL Normal .1 CA 8.9 LAB L501.5300 136-14 mmol/L Normal 5 NA 140 LAB L501.5600 3.5-5. mmol/L Normal 1 K 3.6 LAB L501.5900 98-107 mmol/L Normal CL 106 LAB L501.6100 21.0-3 mmol/L Normal 2.0 CO2 25.0 LAB L501.6200 5-15 Normal GAP 9 Performed By: #### L500.2500 #### [facility] [address] [place], [address] Observed: 06/07/2018 Status: F Source: [place] MRSA/SAID SCREEN 1:10 PM [facility] REPOSITORY MRSA/SAID SCRN S. AUREUS S. aureus Negative MRSA MRSA Negative Performed By: #### M100.651 #### [facility] [address] [place], [address] HISTORY AND PHYSICAL Observed: 06/07/2018 Status: F Source: [place] EXAM 1:08 PM [facility] REPOSITORY [facility] Medical Records Department [address] [place] [address] History and Physical 06/07/18 1307 MR#: [id number] Acct: [id number] Name: QUIN JOEL Rep #: [id number] : 1970 48 From: Estuardo Cochran PA-C PCP: DI Dumont Status: PRE IN Y Location: [facility] History and Physical DATE OF SURGERY: 06/19/2018 SCHEDULED PROCEDURE: Direct anterior left total hip arthroplasty HISTORY OF PRESENT ILLNESS: This is a 48-year-old female who is at ongoing pain in her left hip for the past 2 years. Pain can reach as high as an 8/10. Her pain as being constant. She has increased pain going up and down stairs, walking a moderate distance. Pain is located in the anterior thigh. She does report startup pain. Patient states she has difficult time with activities of daily living including shopping and leisure activities such as exercising. She feels unsafe going on walks. Patient has tried conservative measures consisting of ice, heat, elevation with no relief in symptoms. Rest provides her sometimes with temporary relief. Patient has tried home exercises with no relief in symptoms. She has tried [id number] ibuprofen with no relief in symptoms. Patient does have medical history pertinent for psoriatic arthritis in which she takes methotrexate. She currently denies any chest pain, shortness of breath, fevers chills, recent infections. We have received surgical clearance from patient's primary care physician. After failing conservative measures and discussing all treatment options with Dr. Juan Chandra, the patient would like to proceed with a left total hip arthroplasty. REVIEW OF SYSTEMS: ROS: Const: Denies change in appetite, fever and weight change. CV: Denies chest pain, heart murmur and irregular heartbeat. Resp: Denies cough, pneumonia, shortness of breath, tuberculosis and wheezing. GI: Denies constipation, diarrhea, heartburn, nausea, rectal itching, bloody stools and vomiting. : Denies incontinence. Musculo: Reports gait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 Insurance:SELF PAY [facility] Number: Effective Repository Date:2018-05-21 04/01/2018 QUIN Anthony Primary QUIN M Gisselle [id number] Insurance:ANTHEMPolic WILLIAMSDOB: Community [place] y Number: [id number] [id number] Repository [address]Asl: (330) Date:5086-67-85FZ [phone] () [id number] LOZANO [address]4586VA: 04/01/2018 Secondary NOT GIVENUNK [place] Insurance:SELF PAY [facility] Number: Effective Repository Date:2018-04-01 03/06/2018 QUIN Cruz Primary QUIN M Gisselle [id number] Insurance:ANTHEMPolic WILLIAMSDOB: [facility] [place] y Number: [id number] [id number] Repository [address]Rlc: (330) Date:4158-76-82ED [phone] () [id number] LOZANO [address]SP: 03/06/2018 Secondary NOT GIVENUNK [place] Insurance:SELF PAY [facility] Number: Effective Repository Date:2018-03-04 03/02/2018 QUIN Cruz Primary QUIN JOEL40 Insurance:ANTHEMPolic WILLIAMSDOB: [facility] [place] y Number: [id number] [id number] Repository [address]Ims: (330) Date:9805-00-60HP [phone] () [id number] LOZANO [address]RA: 03/02/2018 Secondary NOT GIVENUNK Gisselle Insurance:SELF PAY [facility] Number: Effective Repository Date:2018-03-02 02/05/2018 QUIN RIVAS Insurance:ANTHEMPolic WILLIAMSDOB: [facility] [place] y Number: [id number] [id number] Repository [address]Dna: (330) Date:9719-27-73IN [phone] () [id number], [place] [address]FE: 02/05/2018 Secondary NOT GIVENUNK [place] Insurance:SELF PAY [facility] Number: Effective Repository Date:2018-02-05
== END ==
PROVIDERS: PCP Nurse Practitioner Adult Health; Referring Provider Internal Medicine Rheumatology; Visit Provider Internal Medicine Rheumatology
DX: L40.59 Other psoriatic arthropathy (principal); Z79.899 Other long term (current) drug therapy; L40.8 Other psoriasis; M16.12 Unilateral primary osteoarthritis, left hip; K76.0 Fatty (change of) liver, not elsewhere classified; Q66.7 Congenital pes cavus
CPT/HCPCS: 36415; 80053; 85025

== ENCOUNTER → 2019-02-10 08:54 | Outpatient (CLI) | payer BC, SELFPAY ==
[2018-06-19 14:24] VITALS: BMI 32.5
[2019-02-10 10:20] LABS: Absolute Neutrophil Count 4.8 X10^3/uL (2.0-7.7); Basophil# 0.06 X10^3/uL; Basophil% 0.8 % (0-1); Eosinophil# 0.17 X10^3/uL; Eosinophils% 2.2 % (0-5); Hematocrit 43.7 % (37-47); Hemoglobin 14.4 g/dl (12.0-15.0); Lymphocyte % 28.9 % (19-41); Mean Corpuscular Hgb 27.2 pg (27.0-32.0); Mean Corpuscular Volume 82.5 fL (81-99); Mean Platelet Vol. 10.8 fl (6.2-12.0); Monocyte% 5.2 % (0-10); Neutrophil # 4.77 X10^3/uL (2.7-7.7); Neutrophil % 62.6 % (47-70); Platelet Count 310 K/mm3 (150-450); RBC Distribution Width CV 14.1 % (11.6-14.6); White Blood Count 7.6 K/mm3 (4.4-11.0)
[2019-02-10 10:27] LABS: POSITIVE COUNT NO; POSITIVE DIFFERENTIAL NO; POSITIVE MORPHOLOGY NO
[2019-02-10 10:43] LABS: ALB/GLOB Ratio 1.1 RATIO (0.9-2.4); AST(SGOT) 12 U/L (15-37); Alanine Aminotransfer ALT/SGPT 16 U/L (13-56); Alkaline Phosphatase 118 U/L (45-117); Anion Gap 8 (5-15); BUN 12 mg/dL (7-18); BUN/Creat Ratio 12.8 RATIO (10-20); Calcium,Total 9.2 mg/dL (8.5-10.1); Chloride 107 mmol/L (98-107); Creatinine, Serum 0.94 mg/dL (0.55-1.02); EST Glomerular Filtration Rate 68 mL/min (>60); Est Glom Filt Rate - Afr Amer 82 mL/min (>60); Globulin 3.7 g/dL (2.2-4.2); Glucose 101 mg/dL (74-106); Potassium 4.1 mmol/L (3.5-5.1); Protein, Total 7.7 g/dL (6.4-8.2); Sodium Level 140 mmol/L (136-145)
== END ==
PROVIDERS: Family Provider Nurse Practitioner Adult Health; PCP Nurse Practitioner Adult Health; Referring Provider Internal Medicine Rheumatology; Visit Provider Internal Medicine Rheumatology
DX: L40.59 Other psoriatic arthropathy (principal); M16.12 Unilateral primary osteoarthritis, left hip; K76.0 Fatty (change of) liver, not elsewhere classified; Q66.7 Congenital pes cavus; Z79.899 Other long term (current) drug therapy
CPT/HCPCS: 36415; 80053; 85025

== ENCOUNTER → 2019-09-18 09:55 | Outpatient (CLI) | payer BC, SELFPAY ==
[2018-06-19 14:24] VITALS: BMI 32.5
[2019-09-18 12:33] LABS: Absolute Lymphocyte Count 1.95 X10^3/uL (0.83-4.51); Absolute Neutrophil Count 4.4 X10^3/uL (2.0-7.7); Basophil# 0.08 X10^3/uL; Basophil% 1.1 % (0-1); Eosinophil# 0.23 X10^3/uL; Eosinophils% 3.2 % (0-5); Hematocrit 44.4 % (37-47); Hemoglobin 14.6 g/dL (12.0-15.0); Lymphocyte # 1.95 X10^3/ul (4.0); Lymphocyte % 27.2 % (19-41); Mean Corp Hgb Conc 32.9 g/dL (32-36); Mean Corpuscular Hgb 29.6 pg (27.0-32.0); Mean Corpuscular Volume 90.1 fL (81-99); Mean Platelet Vol. 10.5 fl (6.2-12.0); Monocyte# 0.52 X10^3/uL; Monocyte% 7.2 % (0-10); NRBC Flagged by Analyzer 0 % (0-5); Neutrophil # 4.39 X10^3/uL (2.7-7.7); Neutrophil % 61.2 % (47-70); Platelet Count 267 K/mm3 (150-450); RBC Distribution Width CV 13.2 % (11.6-14.6); RBC Distribution Width SD 43.4 fl (35.1-43.9); Red Blood Count 4.93 M/mm3 (4.2-5.4); White Blood Count 7.2 K/mm3 (4.4-11.0)
[2019-09-18 12:41] LABS: Erythrocyte Sedimentation Rate 2 mm/hr (0-20)
[2019-09-18 13:13] LABS: ALB/GLOB Ratio 1.1 RATIO (0.9-2.4); AST(SGOT) 11 U/L (15-37); Alanine Aminotransfer ALT/SGPT 20 U/L (13-56); Alkaline Phosphatase 99 U/L (45-117); Anion Gap 8 (5-15); BUN 17 mg/dL (7-18); BUN/Creat Ratio 20.5 RATIO (10-20); CRP 6.18 mg/L (0.0-3.0); Chloride 106 mmol/L (98-107); Creatinine, Serum 0.83 mg/dL (0.55-1.02); EST Glomerular Filtration Rate 78 mL/min (>60); Est Glom Filt Rate - Afr Amer 94 mL/min (>60); Globulin 3.5 g/dL (2.2-4.2); Glucose 89 mg/dL (74-106); Potassium 3.8 mmol/L (3.5-5.1); Protein, Total 7.5 g/dL (6.4-8.2); Sodium Level 141 mmol/L (136-145)
== END ==
LOC: MTLAB 09:59
PROVIDERS: Family Provider Nurse Practitioner Adult Health; PCP Nurse Practitioner Adult Health; Referring Provider Internal Medicine Rheumatology; Visit Provider Internal Medicine Rheumatology
DX: L40.59 Other psoriatic arthropathy (principal); Z79.899 Other long term (current) drug therapy; L40.8 Other psoriasis; M16.12 Unilateral primary osteoarthritis, left hip; K76.0 Fatty (change of) liver, not elsewhere classified; Q66.70 Congenital pes cavus, unspecified foot
CPT/HCPCS: 36415; 80053; 85025; 85652; 86140

== ENCOUNTER → 2019-11-07 11:57 | Outpatient (CLI) | payer BC, SELFPAY ==
[2018-06-19 14:24] VITALS: BMI 32.5
[2019-11-07 14:23] LABS: Erythrocyte Sedimentation Rate 4 mm/hr (0-20)
[2019-11-07 14:24] LABS: Absolute Lymphocyte Count 2.43 X10^3/uL (0.83-4.51); Absolute Neutrophil Count 6.6 X10^3/uL (2.0-7.7); Basophil% 0.7 % (0-1); Eosinophils% 2.5 % (0-5); Hematocrit 44.1 % (37-47); Hemoglobin 14.5 g/dL (12.0-15.0); Lymphocyte # 2.43 X10^3/ul (4.0); Lymphocyte % 24.6 % (19-41); Mean Corp Hgb Conc 32.9 g/dL (32-36); Mean Corpuscular Hgb 29.3 pg (27.0-32.0); Mean Corpuscular Volume 89.1 fL (81-99); Mean Platelet Vol. 10.8 fl (6.2-12.0); Monocyte% 5.6 % (0-10); Neutrophil # 6.55 X10^3/uL (2.7-7.7); Neutrophil % 66.3 % (47-70); Platelet Count 333 K/mm3 (150-450); RBC Distribution Width CV 12.6 % (11.6-14.6); RBC Distribution Width SD 40.8 fl (35.1-43.9); Red Blood Count 4.95 M/mm3 (4.2-5.4); White Blood Count 9.9 K/mm3 (4.4-11.0)
[2019-11-07 14:25] LABS: Basophil# 0.07 X10^3/uL; Eosinophil# 0.25 X10^3/uL; Monocyte# 0.55 X10^3/uL; NRBC Flagged by Analyzer 0 % (0-5)
[2019-11-07 14:33] LABS: ALB/GLOB Ratio 1.1 RATIO (0.9-2.4); AST(SGOT) 14 U/L (15-37); Alanine Aminotransfer ALT/SGPT 25 U/L (13-56); Albumin, Serum 3.9 g/dL (3.2-5.0); Alkaline Phosphatase 104 U/L (45-117); Anion Gap 4 (5-15); BUN 15 mg/dL (7-18); BUN/Creat Ratio 17.5 RATIO (10-20); Chloride 107 mmol/L (98-107); Creatinine, Serum 0.86 mg/dL (0.55-1.02); EST Glomerular Filtration Rate 75 mL/min (>60); Est Glom Filt Rate - Afr Amer 91 mL/min (>60); Globulin 3.6 g/dL (2.2-4.2); Glucose 114 mg/dL (74-106); Potassium 3.7 mmol/L (3.5-5.1); Protein, Total 7.5 g/dL (6.4-8.2); Sodium Level 140 mmol/L (136-145)
== END ==
LOC: MTLAB 12:00
PROVIDERS: Family Provider Nurse Practitioner Adult Health; PCP Nurse Practitioner Adult Health; Referring Provider Internal Medicine Rheumatology; Visit Provider Internal Medicine Rheumatology
DX: L40.59 Other psoriatic arthropathy (principal); Z79.899 Other long term (current) drug therapy; L40.8 Other psoriasis
CPT/HCPCS: 36415; 80053; 85025; 85652; 86140

== ENCOUNTER → 2020-01-19 11:18 | Outpatient (CLI) | payer BC, SELFPAY ==
[2018-06-19 14:24] VITALS: BMI 32.5
[2020-01-19 12:58] LABS: Absolute Lymphocyte Count 2.52 X10^3/uL (0.83-4.51); Absolute Neutrophil Count 5.3 X10^3/uL (2.0-7.7); Basophil# 0.08 X10^3/uL; Basophil% 0.9 % (0-1); Eosinophil# 0.21 X10^3/uL; Eosinophils% 2.4 % (0-5); Hematocrit 43.8 % (37-47); Hemoglobin 14.2 g/dL (12.0-15.0); Lymphocyte # 2.52 X10^3/ul (4.0); Lymphocyte % 29.2 % (19-41); Mean Corp Hgb Conc 32.4 g/dL (32-36); Mean Corpuscular Hgb 28.9 pg (27.0-32.0); Mean Corpuscular Volume 89.2 fL (81-99); Mean Platelet Vol. 10.8 fl (6.2-12.0); Monocyte# 0.49 X10^3/uL; Monocyte% 5.7 % (0-10); NRBC Flagged by Analyzer 0 % (0-5); Neutrophil % 61.5 % (47-70); Platelet Count 314 K/mm3 (150-450); RBC Distribution Width CV 13.2 % (11.6-14.6); RBC Distribution Width SD 42.5 fl (35.1-43.9); Red Blood Count 4.91 M/mm3 (4.2-5.4); White Blood Count 8.6 K/mm3 (4.4-11.0)
[2020-01-19 14:18] LABS: AST(SGOT) 20 U/L (15-37); Alanine Aminotransfer ALT/SGPT 32 U/L (13-56); Albumin, Serum 3.9 g/dL (3.2-5.0); Alkaline Phosphatase 115 U/L (45-117); Anion Gap 9 (5-15); BUN 9 mg/dL (7-18); BUN/Creat Ratio 11.2 RATIO (10-20); Calcium,Total 9.1 mg/dL (8.5-10.1); Chloride 104 mmol/L (98-107); EST Glomerular Filtration Rate 81 mL/min (>60); Est Glom Filt Rate - Afr Amer 98 mL/min (>60); Globulin 3.8 g/dL (2.2-4.2); Glucose 109 mg/dL (74-106); Potassium 4.1 mmol/L (3.5-5.1); Protein, Total 7.7 g/dL (6.4-8.2); Sodium Level 139 mmol/L (136-145)
== END ==
LOC: MTLAB 11:20
PROVIDERS: PCP Nurse Practitioner Adult Health; Referring Provider Internal Medicine Rheumatology; Visit Provider Internal Medicine Rheumatology
DX: L40.59 Other psoriatic arthropathy (principal); Z79.899 Other long term (current) drug therapy; L40.8 Other psoriasis; M16.12 Unilateral primary osteoarthritis, left hip; K76.0 Fatty (change of) liver, not elsewhere classified; Q66.70 Congenital pes cavus, unspecified foot
CPT/HCPCS: 36415; 80053; 85025; 86140

== ENCOUNTER → 2020-04-16 08:08 | Outpatient (CLI) | payer BC, SELFPAY ==
[2018-06-19 14:24] VITALS: BMI 32.5
[2020-04-16 10:07] LABS: Absolute Lymphocyte Count 2.25 X10^3/uL (0.83-4.51); Absolute Neutrophil Count 3.9 X10^3/uL (2.0-7.7); Basophil# 0.04 X10^3/uL; Basophil% 0.6 % (0-1); Eosinophils% 2.9 % (0-5); Hematocrit 41.4 % (37-47); Hemoglobin 13.4 g/dL (12.0-15.0); Lymphocyte # 2.25 X10^3/ul (4.0); Lymphocyte % 32.8 % (19-41); Mean Corp Hgb Conc 32.4 g/dL (32-36); Mean Corpuscular Hgb 28.8 pg (27.0-32.0); Mean Platelet Vol. 10.4 fl (6.2-12.0); Monocyte# 0.46 X10^3/uL; Monocyte% 6.7 % (0-10); NRBC Flagged by Analyzer 0 % (0-5); Neutrophil # 3.87 X10^3/uL (2.7-7.7); Neutrophil % 56.6 % (47-70); Platelet Count 280 K/mm3 (150-450); RBC Distribution Width CV 13.2 % (11.6-14.6); RBC Distribution Width SD 42.6 fl (35.1-43.9); Red Blood Count 4.65 M/mm3 (4.2-5.4); White Blood Count 6.9 K/mm3 (4.4-11.0)
[2020-04-16 10:33] LABS: AST(SGOT) 15 U/L (15-37); Alanine Aminotransfer ALT/SGPT 25 U/L (13-56); Albumin, Serum 3.6 g/dL (3.2-5.0); Alkaline Phosphatase 105 U/L (45-117); Anion Gap 7 (5-15); Calcium,Total 9.2 mg/dL (8.5-10.1); Chloride 105 mmol/L (98-107); Creatinine, Serum 0.77 mg/dL (0.55-1.02); EST Glomerular Filtration Rate 85 mL/min (>60); Est Glom Filt Rate - Afr Amer 103 mL/min (>60); Globulin 3.6 g/dL (2.2-4.2); Glucose 93 mg/dL (74-106); Potassium 3.9 mmol/L (3.5-5.1); Protein, Total 7.2 g/dL (6.4-8.2); Sodium Level 141 mmol/L (136-145)
[2020-04-16 10:34] LABS: BUN 13 mg/dL (7-18); BUN/Creat Ratio 16.9 RATIO (10-20)
== END ==
PROVIDERS: PCP Nurse Practitioner Adult Health; Referring Provider Internal Medicine Rheumatology; Visit Provider Internal Medicine Rheumatology
DX: L40.59 Other psoriatic arthropathy (principal); L40.8 Other psoriasis; M16.12 Unilateral primary osteoarthritis, left hip; K76.0 Fatty (change of) liver, not elsewhere classified; Q66.70 Congenital pes cavus, unspecified foot; Z79.899 Other long term (current) drug therapy
CPT/HCPCS: 36415; 80053; 85025; 86140

== ENCOUNTER → 2022-04-04 | Outpatient (CLI) | payer BC, SELFPAY ==
[2022-04-04 10:10] LABS: Absolute Lymphocyte Count 1.91 X10^3/uL (0.83-4.51); Absolute Neutrophil Count 6.1 X10^3/uL (2.0-7.7); Basophil# 0.08 X10^3/uL; Basophil% 0.9 % (0-1); Eosinophil# 0.18 X10^3/uL; Eosinophils% 2.1 % (0-5); Hematocrit 43.2 % (37-47); Hemoglobin 13.8 g/dL (12.0-15.0); Lymphocyte # 1.91 X10^3/ul (0.83-4.51); Lymphocyte % 21.8 % (19-41); Mean Corp Hgb Conc 31.9 g/dL (32-36); Mean Corpuscular Hgb 28.1 pg (27.0-32.0); Mean Platelet Vol. 10.2 fl (6.2-12.0); Monocyte# 0.48 X10^3/uL; Monocyte% 5.5 % (0-10); NRBC Flagged by Analyzer 0 % (0-5); Neutrophil # 6.08 X10^3/uL (2.7-7.7); Neutrophil % 69.2 % (47-70); Platelet Count 322 K/mm3 (150-450); RBC Distribution Width CV 13.5 % (11.6-14.6); RBC Distribution Width SD 43.8 fl (35.1-43.9); Red Blood Count 4.91 M/mm3 (4.2-5.4); White Blood Count 8.8 K/mm3 (4.4-11.0)
[2022-04-04 10:19] LABS: ALB/GLOB Ratio 1.1 RATIO (0.9-2.4); AST(SGOT) 11 U/L (15-37); Alanine Aminotransfer ALT/SGPT 27 U/L (13-56); Albumin, Serum 3.8 g/dL (3.2-5.0); Alkaline Phosphatase 110 U/L (45-117); Anion Gap 4 (5-15); BUN 15 mg/dL (7-18); BUN/Creat Ratio 16.9 RATIO (10-20); Calcium,Total 9.1 mg/dL (8.5-10.1); Chloride 107 mmol/L (98-107); Creatinine, Serum 0.88 mg/dL (0.55-1.02); EST Glomerular Filtration Rate 72 mL/min (>60); Est Glom Filt Rate - Afr Amer 87 mL/min (>60); Globulin 3.4 g/dL (2.2-4.2); Glucose 96 mg/dL (74-106); Potassium 3.9 mmol/L (3.5-5.1); Protein, Total 7.2 g/dL (6.4-8.2); Sodium Level 139 mmol/L (136-145)
== END | disposition home or self-care (01) ==
LOC: MTLAB 08:17
PROVIDERS: PCP Nurse Practitioner Adult Health; Referring Provider Internal Medicine Rheumatology; Visit Provider Internal Medicine Rheumatology
DX: L40.59 Other psoriatic arthropathy (principal); Z79.899 Other long term (current) drug therapy; L40.8 Other psoriasis; G56.02 Carpal tunnel syndrome, left upper limb; M16.12 Unilateral primary osteoarthritis, left hip; K76.0 Fatty (change of) liver, not elsewhere classified; Q66.70 Congenital pes cavus, unspecified foot
CPT/HCPCS: 36415; 80053; 85025

== ENCOUNTER 2022-09-18 09:17 | Outpatient (CLI) | payer BC, SELFPAY ==
[2022-09-18 09:58] LABS: Absolute Lymphocyte Count 1.97 X10^3/uL (0.83-4.51); Absolute Neutrophil Count 6.3 X10^3/uL (2.0-7.7); Basophil# 0.09 X10^3/uL; Eosinophil# 0.25 X10^3/uL; Eosinophils% 2.7 % (0-5); Hematocrit 44.6 % (37-47); Lymphocyte # 1.97 X10^3/ul (0.83-4.51); Lymphocyte % 21.3 % (19-41); Mean Corp Hgb Conc 33.6 g/dL (32-36); Mean Corpuscular Hgb 31.5 pg (27.0-32.0); Mean Corpuscular Volume 93.7 fL (81-99); Mean Platelet Vol. 9.6 fl (6.2-12.0); Monocyte# 0.54 X10^3/uL; Monocyte% 5.8 % (0-10); NRBC Flagged by Analyzer 0 % (0-5); Neutrophil # 6.32 X10^3/uL (2.7-7.7); Neutrophil % 68.3 % (47-70); Platelet Count 325 K/mm3 (150-450); RBC Distribution Width CV 14.6 % (11.6-14.6); RBC Distribution Width SD 49.4 fl (35.1-43.9); Red Blood Count 4.76 M/mm3 (4.2-5.4); White Blood Count 9.3 K/mm3 (4.4-11.0)
[2022-09-18 10:30] LABS: ALB/GLOB Ratio 1.1 RATIO (0.9-2.4); AST(SGOT) 15 U/L (15-37); Alanine Aminotransfer ALT/SGPT 30 U/L (13-56); Albumin, Serum 3.8 g/dL (3.2-5.0); Alkaline Phosphatase 90 U/L (45-117); Anion Gap 7 (5-15); BUN 17 mg/dL (7-18); BUN/Creat Ratio 17.3 RATIO (10-20); Calcium,Total 9.3 mg/dL (8.5-10.1); Chloride 105 mmol/L (98-107); Creatinine, Serum 0.98 mg/dL (0.55-1.02); EST Glomerular Filtration Rate 63 mL/min (>60); Est Glom Filt Rate - Afr Amer 76 mL/min (>60); Globulin 3.4 g/dL (2.2-4.2); Glucose 139 mg/dL (74-106); Potassium 3.7 mmol/L (3.5-5.1); Protein, Total 7.2 g/dL (6.4-8.2); Sodium Level 140 mmol/L (136-145)
== END 2022-09-18 23:59 | disposition home or self-care (01) ==
PROVIDERS: PCP Nurse Practitioner Adult Health; Referring Provider Internal Medicine Rheumatology; Visit Provider Internal Medicine Rheumatology
DX: L40.59 Other psoriatic arthropathy (principal); Z79.899 Other long term (current) drug therapy; L40.8 Other psoriasis; G56.02 Carpal tunnel syndrome, left upper limb; M16.12 Unilateral primary osteoarthritis, left hip; K76.0 Fatty (change of) liver, not elsewhere classified; Q66.70 Congenital pes cavus, unspecified foot
CPT/HCPCS: 36415; 80053; 85025

== ENCOUNTER → 2022-12-13 | Outpatient (CLI) | payer BC, SELFPAY ==
[2022-12-13 17:52] LABS: Absolute Lymphocyte Count 2.01 X10^3/uL (0.83-4.51); Absolute Neutrophil Count 4.7 X10^3/uL (2.0-7.7); Basophil# 0.07 X10^3/uL; Basophil% 0.9 % (0-1); Eosinophil# 0.26 X10^3/uL; Eosinophils% 3.4 % (0-5); Hematocrit 41.3 % (37-47); Hemoglobin 13.4 g/dL (12.0-15.0); Lymphocyte # 2.01 X10^3/ul (0.83-4.51); Lymphocyte % 26.6 % (19-41); Mean Corp Hgb Conc 32.4 g/dL (32-36); Mean Corpuscular Hgb 30.3 pg (27.0-32.0); Mean Corpuscular Volume 93.4 fL (81-99); Mean Platelet Vol. 10.8 fl (6.2-12.0); Monocyte# 0.49 X10^3/uL; Monocyte% 6.5 % (0-10); NRBC Flagged by Analyzer 0 % (0-5); Neutrophil # 4.65 X10^3/uL (2.7-7.7); Neutrophil % 61.5 % (47-70); Platelet Count 333 K/mm3 (150-450); RBC Distribution Width CV 14.1 % (11.6-14.6); RBC Distribution Width SD 48.1 fl (35.1-43.9); Red Blood Count 4.42 M/mm3 (4.2-5.4); White Blood Count 7.6 K/mm3 (4.4-11.0)
[2022-12-13 19:01] LABS: ALB/GLOB Ratio 1.1 RATIO (0.9-2.4); AST(SGOT) 70 U/L (15-37); Alanine Aminotransfer ALT/SGPT 79 U/L (13-56); Albumin, Serum 3.6 g/dL (3.2-5.0); Alkaline Phosphatase 102 U/L (45-117); Anion Gap 7 (5-15); BUN 17 mg/dL (7-18); BUN/Creat Ratio 17.7 RATIO (10-20); Calcium,Total 8.6 mg/dL (8.5-10.1); Chloride 107 mmol/L (98-107); Creatinine, Serum 0.96 mg/dL (0.55-1.02); EST Glomerular Filtration Rate 65 mL/min (>60); Est Glom Filt Rate - Afr Amer 79 mL/min (>60); Globulin 3.2 g/dL (2.2-4.2); Glucose 127 mg/dL (74-106); Potassium 3.9 mmol/L (3.5-5.1); Protein, Total 6.8 g/dL (6.4-8.2); Sodium Level 139 mmol/L (136-145)
== END | disposition home or self-care (01) ==
PROVIDERS: PCP Nurse Practitioner Adult Health; Visit Provider Internal Medicine Rheumatology
DX: L40.59 Other psoriatic arthropathy (principal); Z79.899 Other long term (current) drug therapy; L40.8 Other psoriasis; K76.0 Fatty (change of) liver, not elsewhere classified
CPT/HCPCS: 36415; 80053; 85025

== ENCOUNTER → 2023-03-13 | Outpatient (CLI) | payer BC, SELFPAY ==
[2023-03-13 17:45] LABS: Absolute Neutrophil Count 5.6 X10^3/uL (2.0-7.7); Basophil# 0.11 X10^3/uL; Basophil% 1.2 % (0-1); Eosinophil# 0.22 X10^3/uL; Eosinophils% 2.4 % (0-5); Hematocrit 41.4 % (37-47); Hemoglobin 13.1 g/dL (12.0-15.0); Lymphocyte % 27.8 % (19-41); Mean Corp Hgb Conc 31.6 g/dL (32-36); Mean Corpuscular Hgb 29.1 pg (27.0-32.0); Mean Platelet Vol. 10.1 fl (6.2-12.0); Monocyte# 0.53 X10^3/uL; Monocyte% 5.9 % (0-10); NRBC Flagged by Analyzer 0 % (0-5); Neutrophil # 5.59 X10^3/uL (2.7-7.7); Neutrophil % 62.4 % (47-70); Platelet Count 354 K/mm3 (150-450); RBC Distribution Width CV 14.2 % (11.6-14.6); RBC Distribution Width SD 47.8 fl (35.1-43.9)
[2023-03-13 18:26] LABS: ALB/GLOB Ratio 1.1 RATIO (0.9-2.4); AST(SGOT) 23 U/L (15-37); Alanine Aminotransfer ALT/SGPT 36 U/L (13-56); Albumin, Serum 3.8 g/dL (3.2-5.0); Alkaline Phosphatase 105 U/L (45-117); Anion Gap 4 (5-15); BUN 16 mg/dL (7-18); BUN/Creat Ratio 22.7 RATIO (10-20); Calcium,Total 8.9 mg/dL (8.5-10.1); Chloride 110 mmol/L (98-107); EST Glomerular Filtration Rate 93 mL/min (>60); Est Glom Filt Rate - Afr Amer 112 mL/min (>60); Globulin 3.4 g/dL (2.2-4.2); Glucose 105 mg/dL (74-106); Potassium 3.7 mmol/L (3.5-5.1); Protein, Total 7.2 g/dL (6.4-8.2); Sodium Level 140 mmol/L (136-145)
== END | disposition home or self-care (01) ==
LOC: MTLAB 16:59
PROVIDERS: PCP Nurse Practitioner Adult Health; Referring Provider Internal Medicine Rheumatology; Visit Provider Internal Medicine Rheumatology
DX: L40.59 Other psoriatic arthropathy (principal); Z79.899 Other long term (current) drug therapy
CPT/HCPCS: 36415; 80053; 85025

== ENCOUNTER → 2023-04-23 | Outpatient (CLI) | payer BC, SELFPAY ==
[2023-04-23 12:03] LABS: Absolute Neutrophil Count 6.1 X10^3/uL (2.0-7.7); Basophil# 0.07 X10^3/uL; Basophil% 0.8 % (0-1); Eosinophil# 0.27 X10^3/uL; Hematocrit 42.8 % (37-47); Hemoglobin 14.2 g/dL (12.0-15.0); Lymphocyte % 21.2 % (19-41); Mean Corp Hgb Conc 33.2 g/dL (32-36); Mean Corpuscular Hgb 29.9 pg (27.0-32.0); Mean Corpuscular Volume 90.1 fL (81-99); Mean Platelet Vol. 10.1 fl (6.2-12.0); Monocyte# 0.57 X10^3/uL; Monocyte% 6.4 % (0-10); NRBC Flagged by Analyzer 0 % (0-5); Neutrophil # 6.14 X10^3/uL (2.7-7.7); Neutrophil % 68.5 % (47-70); Platelet Count 315 K/mm3 (150-450); RBC Distribution Width CV 14.3 % (11.6-14.6); RBC Distribution Width SD 46.7 fl (35.1-43.9); Red Blood Count 4.75 M/mm3 (4.2-5.4)
[2023-04-23 12:32] LABS: ALB/GLOB Ratio 1.1 RATIO (0.9-2.4); AST(SGOT) 20 U/L (15-37); Alanine Aminotransfer ALT/SGPT 24 U/L (13-56); Albumin, Serum 3.9 g/dL (3.2-5.0); Alkaline Phosphatase 107 U/L (45-117); Anion Gap 5 (5-15); BUN 17 mg/dL (7-18); BUN/Creat Ratio 20.8 RATIO (10-20); Chloride 107 mmol/L (98-107); Creatinine, Serum 0.82 mg/dL (0.55-1.02); EST Glomerular Filtration Rate 78 mL/min (>60); Est Glom Filt Rate - Afr Amer 94 mL/min (>60); Globulin 3.5 g/dL (2.2-4.2); Glucose 85 mg/dL (74-106); Potassium 3.8 mmol/L (3.5-5.1); Protein, Total 7.4 g/dL (6.4-8.2); Sodium Level 139 mmol/L (136-145)
== END | disposition home or self-care (01) ==
LOC: MTLAB 10:41
PROVIDERS: PCP Nurse Practitioner Adult Health; Referring Provider Internal Medicine Rheumatology; Visit Provider Internal Medicine Rheumatology
DX: L40.59 Other psoriatic arthropathy (principal); Z79.899 Other long term (current) drug therapy
CPT/HCPCS: 36415; 80053; 85025

== ENCOUNTER → 2023-10-31 | Outpatient (CLI) | payer BC, SELFPAY ==
[2023-10-31 10:53] LABS: Absolute Lymphocyte Count 2.08 X10^3/uL (0.83-4.51); Absolute Neutrophil Count 4.8 X10^3/uL (2.0-7.7); Basophil% 1.3 % (0-1); Eosinophil# 0.28 X10^3/uL; Eosinophils% 3.6 % (0-5); Hematocrit 42.9 % (37-47); Hemoglobin 13.5 g/dL (12.0-15.0); Lymphocyte # 2.08 X10^3/ul (0.83-4.51); Lymphocyte % 26.7 % (19-41); Mean Corp Hgb Conc 31.5 g/dL (32-36); Mean Corpuscular Hgb 28.1 pg (27.0-32.0); Mean Corpuscular Volume 89.4 fL (81-99); Mean Platelet Vol. 10.7 fl (6.2-12.0); Monocyte# 0.51 X10^3/uL; Monocyte% 6.6 % (0-10); NRBC Flagged by Analyzer 0 % (0-5); Neutrophil # 4.77 X10^3/uL (2.7-7.7); Neutrophil % 61.3 % (47-70); Platelet Count 332 K/mm3 (150-450); RBC Distribution Width CV 14.3 % (11.6-14.6); RBC Distribution Width SD 46.5 fl (35.1-43.9); White Blood Count 7.8 K/mm3 (4.4-11.0)
[2023-10-31 11:45] LABS: ALB/GLOB Ratio 1.2 RATIO (0.9-2.4); AST(SGOT) 13 U/L (15-37); Alanine Aminotransfer ALT/SGPT 24 U/L (13-56); Albumin, Serum 3.8 g/dL (3.2-5.0); Alkaline Phosphatase 109 U/L (45-117); Anion Gap 4 (5-15); BUN 16 mg/dL (7-18); BUN/Creat Ratio 20.1 RATIO (10-20); Chloride 111 mmol/L (98-107); EST Glomerular Filtration Rate 80 mL/min (>60); Est Glom Filt Rate - Afr Amer 97 mL/min (>60); Globulin 3.3 g/dL (2.2-4.2); Glucose 94 mg/dL (74-106); Potassium 4.1 mmol/L (3.5-5.1); Protein, Total 7.1 g/dL (6.4-8.2); Sodium Level 140 mmol/L (136-145)
== END | disposition home or self-care (01) ==
LOC: MTLAB 08:41
PROVIDERS: PCP Nurse Practitioner Adult Health; Referring Provider Internal Medicine Rheumatology; Visit Provider Internal Medicine Rheumatology
DX: L40.59 Other psoriatic arthropathy (principal); Z79.899 Other long term (current) drug therapy; L40.8 Other psoriasis; M16.12 Unilateral primary osteoarthritis, left hip; G56.03 Carpal tunnel syndrome, bilateral upper limbs
CPT/HCPCS: 36415; 80053; 85025

== ENCOUNTER → 2024-04-18 | Outpatient (CLI) | payer BC, SELFPAY ==
[2024-04-18 10:07] LABS: Absolute Lymphocyte Count 1.73 X10^3/uL (0.83-4.51); Absolute Neutrophil Count 4.9 X10^3/uL (2.0-7.7); Basophil# 0.06 X10^3/uL; Basophil% 0.8 % (0-1); Hematocrit 42.9 % (37-47); Hemoglobin 13.9 g/dL (12.0-15.0); Lymphocyte # 1.73 X10^3/ul (0.83-4.51); Lymphocyte % 23.1 % (19-41); Mean Corp Hgb Conc 32.4 g/dL (32-36); Mean Corpuscular Volume 89.6 fL (81-99); Mean Platelet Vol. 10.6 fl (6.2-12.0); Monocyte# 0.52 X10^3/uL; Monocyte% 6.9 % (0-10); NRBC Flagged by Analyzer 0 % (0-5); Neutrophil # 4.86 X10^3/uL (2.7-7.7); Neutrophil % 64.9 % (47-70); Platelet Count 292 K/mm3 (150-450); RBC Distribution Width SD 45.5 fl (35.1-43.9); Red Blood Count 4.79 M/mm3 (4.2-5.4); White Blood Count 7.5 K/mm3 (4.4-11.0)
[2024-04-18 11:01] LABS: ALB/GLOB Ratio 1.1 RATIO (0.9-2.4); AST(SGOT) 19 U/L (15-37); Alanine Aminotransfer ALT/SGPT 22 U/L (13-56); Albumin, Serum 3.7 g/dL (3.2-5.0); Alkaline Phosphatase 99 U/L (45-117); Anion Gap 6 (5-15); BUN 12 mg/dL (7-18); BUN/Creat Ratio 14.7 RATIO (10-20); Calcium,Total 9.5 mg/dL (8.5-10.1); Chloride 107 mmol/L (98-107); Creatinine, Serum 0.82 mg/dL (0.55-1.02); EST Glomerular Filtration Rate 78 mL/min (>60); Est Glom Filt Rate - Afr Amer 94 mL/min (>60); Globulin 3.5 g/dL (2.2-4.2); Glucose 94 mg/dL (74-106); Potassium 3.9 mmol/L (3.5-5.1); Protein, Total 7.2 g/dL (6.4-8.2); Sodium Level 137 mmol/L (136-145)
== END | disposition home or self-care (01) ==
PROVIDERS: PCP Nurse Practitioner Adult Health; Referring Provider Internal Medicine Rheumatology; Visit Provider Internal Medicine Rheumatology
DX: L40.59 Other psoriatic arthropathy (principal); Z79.899 Other long term (current) drug therapy
CPT/HCPCS: 36415; 80053; 85025

== ENCOUNTER → 2024-07-14 | Outpatient (CLI) | payer BC, SELFPAY ==
[2024-07-14 10:34] LABS: Absolute Lymphocyte Count 1.94 X10^3/uL (0.83-4.51); Absolute Neutrophil Count 6.5 X10^3/uL (2.0-7.7); Basophil% 1.1 % (0-1); Eosinophil# 0.29 X10^3/uL; Eosinophils% 3.1 % (0-5); Hematocrit 44.2 % (37-47); Hemoglobin 14.4 g/dL (12.0-15.0); Lymphocyte # 1.94 X10^3/ul (0.83-4.51); Lymphocyte % 20.4 % (19-41); Mean Corp Hgb Conc 32.6 g/dL (32-36); Mean Corpuscular Hgb 29.3 pg (27.0-32.0); Mean Corpuscular Volume 89.8 fL (81-99); Mean Platelet Vol. 10.4 fl (6.2-12.0); Monocyte# 0.57 X10^3/uL; NRBC Flagged by Analyzer 0 % (0-5); Neutrophil # 6.53 X10^3/uL (2.7-7.7); Neutrophil % 68.7 % (47-70); Platelet Count 359 K/mm3 (150-450); RBC Distribution Width CV 14.2 % (11.6-14.6); RBC Distribution Width SD 45.7 fl (35.1-43.9); Red Blood Count 4.92 M/mm3 (4.2-5.4); White Blood Count 9.5 K/mm3 (4.4-11.0)
[2024-07-14 11:20] LABS: ALB/GLOB Ratio 1.1 RATIO (0.9-2.4); AST(SGOT) 13 U/L (15-37); Alanine Aminotransfer ALT/SGPT 18 U/L (13-56); Albumin, Serum 3.9 g/dL (3.2-5.0); Alkaline Phosphatase 112 U/L (45-117); Anion Gap 7 (5-15); BUN 17 mg/dL (7-18); BUN/Creat Ratio 18.5 RATIO (10-20); Calcium,Total 9.8 mg/dL (8.5-10.1); Chloride 103 mmol/L (98-107); Creatinine, Serum 0.92 mg/dL (0.55-1.02); EST Glomerular Filtration Rate 68 mL/min (>60); Est Glom Filt Rate - Afr Amer 82 mL/min (>60); Globulin 3.5 g/dL (2.2-4.2); Glucose 110 mg/dL (74-106); Potassium 4.1 mmol/L (3.5-5.1); Protein, Total 7.4 g/dL (6.4-8.2); Sodium Level 137 mmol/L (136-145)
== END | disposition home or self-care (01) ==
PROVIDERS: PCP Nurse Practitioner Adult Health; Referring Provider Internal Medicine Rheumatology; Visit Provider Internal Medicine Rheumatology
DX: L40.59 Other psoriatic arthropathy (principal); Z79.899 Other long term (current) drug therapy; M16.12 Unilateral primary osteoarthritis, left hip; G56.03 Carpal tunnel syndrome, bilateral upper limbs
CPT/HCPCS: 36415; 80053; 85025

== ENCOUNTER → 2025-05-29 | Outpatient (CLI) | payer BC, SELFPAY ==
[2025-05-29 15:29] LABS: Hematocrit 38.9 % (37-47); Hemoglobin 12.8 g/dL (12.0-15.0); Immature Granulocytes Count 0.040 X10^3/uL (0.0-0.0); Mean Corp Hgb Conc 32.9 g/dL (32-36); Mean Corpuscular Volume 86.6 fL (81-99); Mean Platelet Vol. 9.8 fl (6.2-12.0); NRBC Flagged by Analyzer 0 % (0-5); Platelet Count 334 K/mm3 (150-450); RBC Distribution Width CV 13.9 % (11.6-14.6); RBC Distribution Width SD 43.5 fl (35.1-43.9); Red Blood Count 4.49 M/mm3 (4.2-5.4); White Blood Count 10.0 K/mm3 (4.4-11.0)
[2025-05-29 16:00] LABS: AST(SGOT) 17 U/L (<=31); Alanine Aminotransfer ALT/SGPT 18 U/L (<=34); Albumin, Serum 4.1 g/dL (3.5-5.0); Alkaline Phosphatase 116 U/L (35-104); Anion Gap 13 (5-15); BUN 17 mg/dL (4-19); BUN/Creat Ratio 21.0 RATIO (10-20); Calcium,Total 9.4 mg/dL (7.6-11.0); Carbon Dioxide 24.4 mmol/L (21.0-32.0); Chloride 102 mmol/L (98-108); Globulin 2.9 g/dL (2.2-4.2); Glucose 84 mg/dL (70-99); Potassium 3.9 mmol/L (3.3-5.1)
== END | disposition home or self-care (01) ==
LOC: MTLAB 13:58
PROVIDERS: PCP Nurse Practitioner Adult Health; Referring Provider Internal Medicine Rheumatology; Visit Provider Internal Medicine Rheumatology
DX: L40.59 Other psoriatic arthropathy (principal); Z79.899 Other long term (current) drug therapy; L40.8 Other psoriasis; K76.0 Fatty (change of) liver, not elsewhere classified
CPT/HCPCS: 36415; 80053; 85025